=== PATIENT | female | born 1950 | race Caucasian/White ===

== ENCOUNTER 2016-06-20 11:17 | Emergency (ER) | payer MEDICARE, MEDICAID ==
--- NOTE | 2016-06-20 12:05 | C.PDOC ---
History Of Present Illness 66 year old female, with a Hx of diabetes, was brought in via BLS and reports left sided back and arm pain from a mechanical fall that occurred yesterday. Patient notes she hit her abdomen on the corner of the table and fell on her buttocks and on her left back and arm. Patient denies changes in sensation or weakness of left arm and back, LOC, AMS, or head trauma, fever, chills, urinary or bowel incontinence, abdominal pain, or any other complaints. (-) N/v. Patient notes having full dialysis today. - HPI Time Seen by Provider: 06/20/16 11:22 Chief Complaint (Nursing): Trauma History Per: Patient History/Exam Limitations: language barrier Onset/Duration Of Symptoms: Days Location Of Injury: Left: Arm, Back, Anterior: Abdomen Severity: Mild Recent travel outside of the [place]: No Past Medical History Reviewed: Historical Data, Nursing Documentation, Vital Signs Vital Signs: Last Vital Signs Temp 97.5 F L 06/20/16 16:25 Pulse 66 06/20/16 16:25 Resp 18 06/20/16 16:25 BP 130/66 06/20/16 16:25 Pulse Ox 96 06/20/16 16:25 - Medical History PMH: Anxiety, Arthritis, Asthma, COPD, Diabetes, HTN, Hypercholesterolemia, End Stage Renal Disease (MWF dilaysis, R arm shunt), Chronic Kidney Disease Family History: States: Unknown Family Hx - Social History Hx Tobacco Use: No Hx Alcohol Use: No Hx Substance Use: No - Immunization History Hx Tetanus Toxoid Vaccination: Yes Hx Influenza Vaccination: Yes Hx Pneumococcal Vaccination: Yes Review Of Systems Except As Marked, All Systems Reviewed And Found Negative. Constitutional: Negative for: Fever, Chills Gastrointestinal: Negative for: Nausea, Vomiting Genitourinary: Negative for: Dysuria, Incontinence (Urinary and bowel) Neurological: Negative for: Weakness (or change in sensation), Altered Mental Status, Other (LOC, Head trauma) Physical Exam - Physical Exam Appears: Non-toxic, No Acute Distress Skin: Warm, Dry, Ecchymosis (5 cm diameter area below belly button) Head: Atraumatic, Normacephalic Eye(s): bilateral: Normal Inspection, PERRL, EOMI Nose: Normal Oral Mucosa: Moist Chest: Symmetrical Cardiovascular: Rhythm Regular Respiratory: Normal Breath Sounds, No Accessory Muscle Use Gastrointestinal/Abdominal: Bowel Sounds, Soft, No Tenderness, No Distention Back: No CVA Tenderness, No Vertebral Tenderness, Paraspinal Tenderness (Left sided lower lumbar and buttocks tenderness) Extremity: Normal ROM (diffuse tenderness to the left shoulder and elbow, illicited with ROM), Tenderness, No Swelling Neurological/Psych: Oriented x3, Normal Speech, Normal Cognition ED Course And Treatment - Laboratory Results Result Diagrams: 06/20/16 12:26 06/20/16 12:26 O2 Sat by Pulse Oximetry: 98 (Room air) Pulse Ox Interpretation: Normal Progress Note: Plans: CT Abd/Pel, PTT, Tylenol, IV fluids, reassess and disposition. On reassessment, patient is resting comfortably, with improvement of left back and arm pain, no fever, no numbness, no weakness, or abdominal pain. PT ate in ED, is comfortable going home. Patient is ambulatory in the emergency department with no signs of discomfort. Patient was advised to follow up with their PMD in 1-2 days. Disposition - Disposition Referrals: Clover Rodriguez MD [Medical Doctor] - Disposition: HOME/ ROUTINE Disposition Time: 15:54 Condition: STABLE Additional Instructions: Vaya a smith mdico o la clnica en 1-3 snyder sin falta, para mas evaluacin. [place] los medicamentos pam indicado. Volver a la valdemar de emergencia en cualquier momento si los sntomas persisten o empeoran. Prescriptions: Acetaminophen [Tylenol 325mg tab] 650 mg PO Q4 PRN #20 tab PRN Reason: Pain, Mild (1-3) Instructions: Back Pain (ED) Print Language: ARABIC - Clinical Impression Clinical Impression: Superficial bruising of abdominal wall, Back strain - Scribe Statement The provider has reviewed the documentation as recorded by the Scribe Jelena san All medical record entries made by the Scribe were at my direction and personally dictated by me. I have reviewed the chart and agree that the record accurately reflects my personal performance of the history, physical exam, medical decision making, and the department course for this patient. I have also personally directed, reviewed, and agree with the discharge instructions and disposition.
[2016-06-20 12:33] LABS: BASO # 0.1 K/uL (0.0-0.2); BASO % 0.9 % (0.0-2.0); EOS # 0.1 K/uL (0.0-0.7); EOS % 2.3 % (0.0-4.0); HEMATOCRIT 38.4 % (34.0-47.0); LYMPH # 2.3 K/uL (1.0-4.3); LYMPH % 37.1 % (20.0-40.0); MEAN CELL VOLUME 101.2 fL (81.0-99.0); MEAN CORPUSCULAR HGB CONC 32.6 g/dL (33.0-37.0); MEAN PLATELET VOLUME 8.1 fL (7.2-11.7); MONO # 0.6 K/uL (0.0-0.8); MONO % 9.8 % (0.0-10.0); NRBC % 0.2 % (0.0-2.0); RED CELL DISTRIBUTION WIDTH 16.1 % (11.5-14.5); WHITE BLOOD COUNT 6.3 K/uL (4.8-10.8)
[2016-06-20 12:40] LABS: POTASSIUM 4.2 mmol/L (3.6-5.2)
[2016-06-20 12:42] LABS: ALB/GLOB RATIO 1.3 (1.0-2.1); BILIRUBIN,TOTAL 0.8 mg/dL (0.2-1.3); TOTAL PROTEIN 7.4 g/dL (6.3-8.3)
[2016-06-20 12:43] LABS: CALCIUM 8.6 mg/dl (8.6-10.4)
--- NOTE | 2016-06-20 12:58 | RAD ---
PROCEDURE: Radiographs of the left elbow. HISTORY: trauma COMPARISON: No prior. FINDINGS: BONES: No definite fracture. JOINTS: Minimal degenerative changes. SOFT TISSUES: Normal. JOINT EFFUSION: No significant joint. OTHER FINDINGS: Posterior other enthesophyte IMPRESSION: Mild degenerative changes. No definite fracture.
--- NOTE | 2016-06-20 13:01 | RAD ---
PROCEDURE: Radiographs of the Left Shoulder HISTORY: trauma COMPARISON: 01/03/2013. FINDINGS: BONES: No fracture or dislocation. JOINTS: Mild degenerative changes of the glenohumeral acromioclavicular joints SOFT TISSUES: Normal. OTHER FINDINGS: None. IMPRESSION: Mild degenerative changes of the glenohumeral and acromioclavicular joints. No fracture or dislocation
[2016-06-20 13:50] LABS: INR 0.9
--- NOTE | 2016-06-20 15:50 | CT ---
PROCEDURE: CT Abdomen and Pelvis without contrast. HISTORY: pain COMPARISON: None. TECHNIQUE: Contiguous axial images of the abdomen and pelvis. No oral or IV contrast given. Coronal and Sagittal reformats generated. Please note that due to lack of intravenous and oral contrast, evaluation of soft tissue structures and bowel is limited. Radiation dose: Total exam DLP = 1160 mGy-cm. This CT exam was performed using one or more of the following dose reduction techniques: Automated exposure control, adjustment of the mA and/or kV according to patient size, and/or use of iterative reconstruction technique. FINDINGS: LOWER THORAX: Mild bibasilar atelectatic changes noted. The heart is mildly enlarged. Coronary arterial and valvular calcifications noted. LIVER: Sub centimeter hypodensity in the left hepatic lobe too small to characterize accurately however likely represents the small cyst versus hemangioma. GALLBLADDER AND BILE DUCTS: Gallbladder not seen. Surgical clips seen in the gallbladder fossa. No intra or extrahepatic biliary ductal dilatation. PANCREAS: Unremarkable. No mass. No ductal dilatation. SPLEEN: Rounded calcification near the splenic hilum/inferior pole likely from old injury/infection. ADRENALS: Unremarkable. KIDNEYS AND URETERS: Atrophic kidneys. No hydronephrosis. Possible cysts in calcifications in both kidneys. BLADDER: Minimally distended limiting evaluation. REPRODUCTIVE: Please note that evaluation of gynecologic organs is not optimal on CT imaging. No gross suspicious adnexal lesions. APPENDIX: Unremarkable. BOWEL: No bowel obstruction. Diverticulosis without evidence of diverticulitis. PERITONEUM: Unremarkable. No fluid collection. No free air. LYMPH NODES: Mild left axillary lymphadenopathy. Mildly prominent lymphadenopathy in the left and right inguinal regions. VASCULATURE: Tortuous descending aorta. Mild ectasia of the proximal descending aorta measuring up to 3.2 centimeters. Scattered calcific plaque throughout the abdominal aorta and its main branches. Venous collaterals in the soft tissues on the lower abdomen and upper thigh, particularly on the left. BONES: Degenerative changes of the lower lumbar spine. OTHER FINDINGS: None. IMPRESSION: No acute bowel pathology. Normal appendix. Soft tissue structures are suboptimally evaluated due to lack of intravenous contrast. Other findings as above.
[2016-06-20 16:27] VITALS: BP 130/66; PULSE 66; RESP 18; TEMP 97.5
[2016-06-20 19:07] VITALS: O2SAT 98
== END 2016-06-20 16:27 | disposition home or self-care (01) ==
LOC: C.ER 11:17
DX: S30.1XXA Contusion of abdominal wall, initial encounter (principal); S39.012A Strain of muscle, fascia and tendon of lower back, initial encounter; W19.XXXA Unspecified fall, initial encounter; E11.9 Type 2 diabetes mellitus without complications; E78.00 Pure hypercholesterolemia, unspecified; I12.0 Hypertensive chronic kidney disease with stage 5 chronic kidney disease or end stage renal disease; N18.6 End stage renal disease; Z99.2 Dependence on renal dialysis

== ENCOUNTER 2016-08-22 11:28 | Emergency (ER) | payer MEDICARE, MEDICAID ==
[2016-08-22 11:40] VITALS: TEMP 97.7; O2SAT 99
--- NOTE | 2016-08-22 13:14 | C.PDOC ---
History Of Present Illness 66-year-old female, PMHx includes ESRD MWF, presents to the emergency department stating she could not go to dialysis today due to lack of transport. Denies nausea/vomiting, leg swelling, shortness of breath, chest pain, cough, abdominal pain/distention, sputum, or any other associated symptoms. No other complaints at this time. Time Seen by Provider: 08/22/16 12:55 Chief Complaint (Nursing): Chest Pain History Per: Patient History/Exam Limitations: no limitations Past Medical History Reviewed: Historical Data, Nursing Documentation, Vital Signs Vital Signs: Last Vital Signs Temp 97.7 F 08/22/16 11:40 Pulse 7 L 08/22/16 14:26 Resp 19 08/22/16 14:26 BP 139/82 08/22/16 14:26 Pulse Ox 99 08/22/16 14:26 - Medical History PMH: Anxiety, Arthritis, Asthma, COPD, Diabetes, HTN, Hypercholesterolemia, End Stage Renal Disease (MWF dilaysis, R arm shunt), Chronic Kidney Disease Family History: States: No Known Family Hx - Social History Hx Tobacco Use: No Hx Alcohol Use: No Hx Substance Use: No - Immunization History Hx Tetanus Toxoid Vaccination: Yes Hx Influenza Vaccination: Yes Hx Pneumococcal Vaccination: Yes Review Of Systems Except As Marked, All Systems Reviewed And Found Negative. Constitutional: Negative for: Fever, Chills Cardiovascular: Negative for: Chest Pain Respiratory: Negative for: Cough, Shortness of Breath Gastrointestinal: Negative for: Nausea, Vomiting Musculoskeletal: Negative for: Back Pain Neurological: Negative for: Weakness, Numbness, Headache, Dizziness Physical Exam - Physical Exam Appears: Non-toxic, No Acute Distress Skin: Warm, Dry, No Rash Head: Atraumatic, Normacephalic Eye(s): bilateral: Normal Inspection, PERRL, EOMI Nose: Normal Oral Mucosa: Moist Lips: Normal Appearing Neck: Normal ROM Chest: Symmetrical, No Tenderness Cardiovascular: Rhythm Regular, No Murmur Respiratory: Normal Breath Sounds, No Accessory Muscle Use, No Rales, No Rhonchi , No Wheezing Gastrointestinal/Abdominal: Soft, No Tenderness Back: Normal Inspection Extremity: Normal ROM, No Tenderness, No Swelling Pulses: Left Dorsalis Pedis: Normal, Right Dorsalis Pedis: Normal Neurological/Psych: Oriented x3, Normal Speech, Normal Motor Gait: Steady ED Course And Treatment O2 Sat by Pulse Oximetry: 99 (on RA) Pulse Ox Interpretation: Normal Medical Decision Making Medical Decision Making: Patient evaluated by Dr Light at bedside, and agrees that the patient is not fluid overloaded, and states to discharge patient for dialysis today. Dr. Light spoke the dialysis center and has made an appointment for the patient. Disposition - Disposition Referrals: Nimesh Light MD [Staff Provider] - Disposition: HOME/ ROUTINE Disposition Time: 13:34 Condition: GOOD Additional Instructions: Go to dialysis today. Follow up with the medical doctor within 1-2 days. Return if worsened. Instructions: Hemodialysis (ED), Dialysis Diet (DC) - Clinical Impression Clinical Impression: ESRD (end stage renal disease) - PA / JUNIOR ASSISTANT MANAGER / Resident Statement MD/DO has reviewed & agrees with the documentation as recorded. - Scribe Statement The provider has reviewed the documentation as recorded by the Scribe (Marylu Yip) All medical record entries made by the Scribe were at my direction and personally dictated by me. I have reviewed the chart and agree that the record accurately reflects my personal performance of the history, physical exam, medical decision making, and the department course for this patient. I have also personally directed, reviewed, and agree with the discharge instructions and disposition.
[2016-08-22 14:27] VITALS: BP 139/82; PULSE 7; RESP 19
--- NOTE | 2016-08-22 14:28 | RAD ---
PROCEDURE: CHEST RADIOGRAPH, 1 VIEW HISTORY: chest pain COMPARISON: 08/25/2015. FINDINGS: LUNGS: There is prominent central vasculature and mild pulmonary venous congestion. There is no focal consolidation. PLEURA: No pneumothorax or pleural fluid seen. CARDIOVASCULAR: There is persistent moderate cardiomegaly. OSSEOUS STRUCTURES: No significant abnormalities. VISUALIZED UPPER ABDOMEN: Normal. OTHER FINDINGS: None. IMPRESSION: Persistent moderate cardiomegaly and mild pulmonary venous congestion. No focal consolidation.
--- NOTE | 2016-08-23 12:38 | CARD ---
APPROVED REPORT EKG Measurement Heart [id number] <Conclusion> Normal sinus rhythm Normal ECG
--- NOTE | 2016-08-23 12:38 | CARD ---
APPROVED REPORT EKG Measurement Heart [id number] <Conclusion> Normal sinus rhythm Normal ECG
== END 2016-08-22 14:34 | disposition home or self-care (01) ==
LOC: C.ER 11:28
DX: I12.0 Hypertensive chronic kidney disease with stage 5 chronic kidney disease or end stage renal disease (principal); N18.6 End stage renal disease; Z99.2 Dependence on renal dialysis

== ENCOUNTER 2017-06-09 05:46 | Emergency (ER) | payer MEDICARE, MEDICAID ==
[2017-06-09] MEDS ORDERED: Lidocaine 1% Inj (20ml) INFIL STA (06:05)
[2017-06-09 06:14] VITALS: BP 132/79; PULSE 89; RESP 20; TEMP 97.2; O2SAT 96
--- NOTE | 2017-06-09 06:43 | C.PDOC ---
History Of Present Illness Patient presents to ED c/o left hand/arm pain after slip and fall on while getting ready to go to dialysis. She denies head injury or LOC, dizziness, chest pain, palpitations. 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 Are (Timing): Still Present Severity: Moderate Past Medical History Reviewed: Historical Data, Nursing Documentation, Vital Signs Vital Signs: Last Vital Signs Temp 97.2 F L 06/09/17 05:53 Pulse 89 06/09/17 05:53 Resp 20 06/09/17 05:53 BP 132/79 06/09/17 05:53 Pulse Ox 96 06/09/17 07:04 - Medical History PMH: Anxiety, Arthritis, Asthma, COPD, Diabetes, HTN, Hypercholesterolemia, End Stage Renal Disease (MWF dilaysis, R arm shunt), Chronic Kidney Disease Family History: States: No Known Family Hx - Social History Hx Tobacco Use: No Hx Alcohol Use: No Hx Substance Use: No - Immunization History Hx Tetanus Toxoid Vaccination: Yes Hx Influenza Vaccination: Yes Hx Pneumococcal Vaccination: Yes Review Of Systems Except As Marked, All Systems Reviewed And Found Negative. Constitutional: Negative for: Fever, Chills Cardiovascular: Negative for: Chest Pain, Palpitations Respiratory: Negative for: Shortness of Breath Neurological: Positive for: Other (left pinky, left elbow and left shoulder pain ). Negative for: Headache, Dizziness Physical Exam - Physical Exam Appears: Well, Non-toxic, In Acute Distress (in mild pain ) Head: Atraumatic, Normacephalic Eye(s): bilateral: Normal Inspection Oral Mucosa: Moist Cardiovascular: Rhythm Regular Respiratory: Normal Breath Sounds, No Rales, No Rhonchi, No Wheezing Extremity: Capillary Refill (< 2 sec all digits ), Other (left 5th digit with dislocated distal phalanx, (+) TTP, (+) elbow TTP without swelling, (+) mild anterior shoulder TTP) Pulses: Left Radial: Normal, Right Radial: Normal Neurological/Psych: Oriented x3, Normal Sensation ED Course And Treatment O2 Sat by Pulse Oximetry: 96 (ra) Pulse Ox Interpretation: Normal - Other Rad left shoulder Xray X-Ray: Interpreted by Me, Viewed By Me (no fracture/dislocation) left hand Xray X-Ray: Interpreted by Me, Viewed By Me (dislocation left 5h digit distal phalanx , no fx) left elbow Xray X-Ray: Interpreted by Me, Viewed By Me (proximal ulna/radius nondisplaced fxs) Progress Note: Xrays of left hand, elbow and shoulder ordered and reviewed. (+ ) dislocation of left 5th digit distal phalanx and (+) nondisplaced elbow fx. Left 5th digit reduction done by me, patient tolerated well. Finger splint placed on 5th digit by me. Left posterior long arm splint and shoulder sling placed by test tech. Reevaluation Time: 07:00 Reassessment Condition: Improved (On reassessment, patient is resting comfortably and pain has imprroved. Left 5th digit and elbow/arm have been immobilized. Patient given Rx for pain medication and instrcucted to follow up with orthopedics within 1 week. She understands she should return to ED if symptoms worsen.) Disposition Counseled Patient/Family Regarding: Studies Performed, Diagnosis, Need For Followup, Rx Given - Disposition Referrals: Becky Campa MD [Staff Provider] - [facility] [place] [Outside] [facility] [Outside] Disposition: HOME/ ROUTINE Disposition Time: 07:00 Condition: STABLE Prescriptions: Acetaminophen with Codeine [Tylenol with Codeine #3 Tablet] 1 each PO Q6 PRN # 15 tablet PRN Reason: pain Instructions: Elbow Fracture (DC), Finger Dislocation Forms: [facility] (Spanish) Print Language: LITHUANIAN - POA Present On Arrival: Falls Or Trauma - Clinical Impression Clinical Impression: Dislocation of left little finger, Elbow fracture, left
--- NOTE | 2017-06-09 08:25 | RAD ---
PROCEDURE: Radiographs of the Left Shoulder HISTORY: left shoulder pain after fall COMPARISON: No prior. FINDINGS: BONES: There is diffuse bone demineralization. There is no acute fracture or bone destruction. JOINTS: There is severe degenerative osteoarthrosis in the acromioclavicular joint. The glenohumeral joint is normal. SOFT TISSUES: Normal. OTHER FINDINGS: None. IMPRESSION: No acute fracture or dislocation.
--- NOTE | 2017-06-09 08:30 | RAD ---
PROCEDURE: Radiographs of the left elbow. HISTORY: left elbow pain after fall COMPARISON: No prior. FINDINGS: BONES: There is an acute nondisplaced fracture in the neck of the radius and acute nondisplaced fracture in the coronoid process of ulna. There are or ossific densities superior to the olecranon process which may represent displaced fracture fragments from avulsion fracture of the olecranon process. JOINTS: Normal. No osteoarthritis. SOFT TISSUES: Normal. JOINT EFFUSION: There is a small joint effusion. OTHER FINDINGS: None IMPRESSION: Acute nondisplaced fractures in the neck of the radius and coronoid process of ulna. Suspect comminuted avulsion fracture in the olecranon process.
--- NOTE | 2017-06-09 08:34 | RAD ---
PROCEDURE: Left Hand Radiographs. HISTORY: left hand pain after fall COMPARISON: None. FINDINGS: BONES: There is no acute displaced fracture. Bone alignment and mineralization are normal. JOINTS: There is dorsal dislocation of the distal interphalangeal joint of the 5th finger. SOFT TISSUES: Normal. OTHER FINDINGS: None. IMPRESSION: Dorsal dislocation of the distal interphalangeal joint of the 5th finger. No acute fracture.
== END 2017-06-09 07:31 | disposition home or self-care (01) ==
LOC: C.ER 05:46
DX: S63.297A Dislocation of distal interphalangeal joint of left little finger, initial encounter (principal); S52.135A Nondisplaced fracture of neck of left radius, initial encounter for closed fracture; S52.045A Nondisplaced fracture of coronoid process of left ulna, initial encounter for closed fracture; W01.0XXA Fall on same level from slipping, tripping and stumbling without subsequent striking against object, initial encounter

== ENCOUNTER 2017-06-19 08:44 | Emergency (ER) | payer MEDICARE, MEDICAID ==
[2017-06-19] MEDS ORDERED: Albuterol-Ipratrop 3 mg / 0.5 (3 ml) UD INH STA ×3 (09:46→11:53)
[2017-06-19] MEDS ORDERED: Albuterol-Ipratrop 3 mg / 0.5 (3 ml) UD ONE ×2 (09:55→11:39)
[2017-06-19 10:55] LABS: BASO % 0.4 % (0.0-2.0); EOS # 0.1 K/uL (0.0-0.7); EOS % 1.4 % (0.0-4.0); HEMOGLOBIN 11.5 g/dL (11.0-16.0); LYMPH # 2.2 K/uL (1.0-4.3); LYMPH % 33.6 % (20.0-40.0); MEAN CORPUSCULAR HEMOGLOBIN 33.8 pg (27.0-31.0); MEAN PLATELET VOLUME 8.3 fL (7.2-11.7); MONO # 0.4 K/uL (0.0-0.8); MONO % 6.1 % (0.0-10.0); NEUT # 3.8 K/uL (1.8-7.0); NEUT % 58.5 % (50.0-75.0); RBC 3.41 Mil/uL (3.80-5.20); RED CELL DISTRIBUTION WIDTH 15.2 % (11.5-14.5); WHITE BLOOD COUNT 6.4 K/uL (4.8-10.8)
[2017-06-19 10:57] LABS: MEAN CELL VOLUME 99.2 fL (81.0-99.0)
[2017-06-19 11:14] LABS: ALB/GLOB RATIO 1.1 (1.0-2.1); ALBUMIN 4.4 g/dL (3.5-5.0); CALCIUM 9.1 mg/dl (8.6-10.4)
[2017-06-19 11:20] LABS: TROPONIN I 0.029 ng/mL (0.00-0.120)
--- NOTE | 2017-06-19 11:28 | RAD ---
PROCEDURE: CHEST RADIOGRAPH, 1 VIEW HISTORY: Shortness of breath COMPARISON: 08/22/2016. FINDINGS: LUNGS: The lungs are well inflated. There is moderate pulmonary venous congestion. PLEURA: No pneumothorax or pleural fluid seen. CARDIOVASCULAR: There is persistent mild cardiomegaly. OSSEOUS STRUCTURES: No significant abnormalities. VISUALIZED UPPER ABDOMEN: Normal. OTHER FINDINGS: None. IMPRESSION: Persistent cardiomegaly and moderate pulmonary venous congestion. No active pulmonary disease.
[2017-06-19 11:39] VITALS: RESP 18
--- NOTE | 2017-06-19 12:34 | C.PDOC ---
History Of Present Illness 67-year-old female, dialysis (MWF) presents to the emergency department with complaints of shortness of breath that started after completing dialysis this morning. Patient has a Hx of asthma and states this feels similar to her prior exacerbation. She denies nausea/vomiting, chest pain or cough. Patient has not had any prior intubations. Of note, patient states she fractured her left arm one week ago, and it is placed in cast. Time Seen by Provider: 06/19/17 09:25 Chief Complaint (Nursing): Respiratory Distress History Per: Patient History/Exam Limitations: no limitations Onset/Duration Of Symptoms: Days Current Symptoms Are (Timing): Still Present Severity: Moderate Past Medical History Reviewed: Historical Data, Nursing Documentation, Vital Signs Vital Signs: Last Vital Signs Temp 98.1 F 06/19/17 13:04 Pulse 80 06/19/17 13:04 Resp 18 06/19/17 13:04 BP 154/90 H 06/19/17 13:04 Pulse Ox 96 06/19/17 13:04 - Medical History PMH: Anxiety, Arthritis, Asthma, COPD, Diabetes, HTN, Hypercholesterolemia, End Stage Renal Disease (MWF dilaysis, R arm shunt), Chronic Kidney Disease Family History: States: No Known Family Hx - Social History Hx Tobacco Use: No Hx Alcohol Use: No Hx Substance Use: No - Immunization History Hx Tetanus Toxoid Vaccination: Yes Hx Influenza Vaccination: Yes Hx Pneumococcal Vaccination: Yes Review Of Systems Constitutional: Negative for: Fever, Chills Cardiovascular: Negative for: Chest Pain Respiratory: Positive for: Shortness of Breath, Wheezing. Negative for: Cough Gastrointestinal: Negative for: Vomiting Musculoskeletal: Negative for: Back Pain Physical Exam - Physical Exam Appears: Non-toxic, No Acute Distress Skin: Normal Color, Warm, Dry, No Rash Head: Normacephalic Eye(s): bilateral: PERRL Nose: Normal Oral Mucosa: Moist Lips: Normal Appearing Neck: Normal ROM Chest: Symmetrical Cardiovascular: Rhythm Regular, No Murmur Respiratory: No Decreased Breath Sounds, No Accessory Muscle Use, Wheezing Gastrointestinal/Abdominal: Normal Exam, Bowel Sounds Extremity: Normal ROM, Other ((+)thrill in right upper extremity. Left arm in cast.) ED Course And Treatment - Laboratory Results Result Diagrams: 06/19/17 10:51 06/19/17 10:51 ECG: Interpreted By Me, Viewed By Me ECG Rhythm: Sinus Rhythm ECG Interpretation: No Acute Changes Interpretation Of ECG: Normal intervals, normal axis. Non specific ST/T wave changes Rate From EC O2 Sat by Pulse Oximetry: 99 (RA) Pulse Ox Interpretation: Normal Medical Decision Making Medical Decision Makin - patient states improvement and feels completely better. Patient ambulated in ER without limitations. d-dimer noted to be elevated, doubt dvt/pe, no history, saturations are normal, wheezing on exam and improved, cxr with chronic changes, patient do not want further workup. Will discharge and advise follow up with pmd in 2 days. Disposition Counseled Patient/Family Regarding: Studies Performed, Diagnosis, Need For Followup, Rx Given - Disposition Referrals: Clover Rodriguez MD [Medical Doctor] - Disposition: HOME/ ROUTINE Disposition Time: 12:43 Condition: STABLE Additional Instructions: follow up with your doctor in 2 days call to make an appointment take medications as needed for pain return to ER if symptoms worsens or progress Prescriptions: Albuterol HFA [Ventolin HFA 90 mcg/actuation (8 g)] 2 puff IH [id number] #1 puff predniSONE [predniSONE Tab] 50 mg PO DAILY #4 tab Instructions: Asthma in Adults Forms: Gen Discharge Inst Serbian, [employer] (Serbian) - Clinical Impression Clinical Impression: Exacerbation of asthma - Scribe Statement The provider has reviewed the documentation as recorded by the Scribe (Marylu Yip) All medical record entries made by the Scribe were at my direction and personally dictated by me. I have reviewed the chart and agree that the record accurately reflects my personal performance of the history, physical exam, medical decision making, and the department course for this patient. I have also personally directed, reviewed, and agree with the discharge instructions and disposition.
[2017-06-19 13:05] VITALS: BP 154/90; PULSE 80; TEMP 98.1
[2017-06-19 18:34] VITALS: O2SAT 99
--- NOTE | 2017-06-20 21:56 | CARD ---
APPROVED REPORT EKG Measurement Heart [id number] 140P-2 [id number] <Conclusion> Normal sinus rhythm Normal ECG
== END 2017-06-19 13:05 | disposition home or self-care (01) ==
LOC: C.ER 08:44
DX: J45.901 Unspecified asthma with (acute) exacerbation (principal); I12.0 Hypertensive chronic kidney disease with stage 5 chronic kidney disease or end stage renal disease; N18.6 End stage renal disease; Z99.2 Dependence on renal dialysis; E78.00 Pure hypercholesterolemia, unspecified
CPT/HCPCS: 71045; 80053; 83880; 84484; 85025; 85378; 93005; 94150; 94640; 96360; 99283; J2930

== ENCOUNTER 2017-09-10 16:27 | Emergency (ER) | payer MEDICARE, MEDICAID ==
[2017-09-10 16:39] VITALS: BP 121/77; PULSE 72; RESP 16; TEMP 97.9; O2SAT 98
--- NOTE | 2017-09-10 17:35 | C.PDOC ---
History Of Present Illness 67 year old female presents to the ED complaining of right lower back pain radiating down to her right buttock/thigh for seven months but worse for the past seven days. She denies any trauma/injuries, weakness, or numbness. She states pain is worse with getting up from sitting down. She uses cane now due to back pain. Patient has a history of End Stage Renal Disease and was afraid to take medications because she is on haemodialysis. She has not been to PMD for evaluation of symptoms. R LOWER BACK PAIN X SEV MONTHS, WORSE X SEV DAYS. NO TRAUMA. R LOWER BACK RADIATION R BUTTOCK/THIGH. WORSE W GETTING UP FROM STANDING. USING CANE NOW DUE TO BACK PAIN. NO WEAK/NUMB. HO ESRD, PS AFRAID TO TAKE MEDS BC IS ON HD. NO PRIOR PMD EVAL FOR SAME. EXAM MILD DIST NONTOXIC BACK NONTEND; +REPRODUC PAIN W ROM NEURO NO FOCAL DEF REMIANDER NEG Time Seen by Provider: 09/10/17 17:28 Chief Complaint (Nursing): Back Pain History Per: Patient History/Exam Limitations: no limitations Onset/Duration Of Symptoms: Worse Since (7 days ago ) Current Symptoms Are (Timing): Still Present Quality Of Discomfort: "Pain" Exacerbating Factor(s): Other (Getting up from sitting down ) Past Medical History Reviewed: Historical Data, Nursing Documentation, Vital Signs Vital Signs: Last Vital Signs Temp 97.9 F 09/10/17 16:35 Pulse 72 09/10/17 16:35 Resp 16 09/10/17 16:35 BP 121/77 09/10/17 16:35 Pulse Ox 98 09/10/17 17:52 - Medical History PMH: Anxiety, Arthritis, Asthma, COPD, Diabetes, HTN, Hypercholesterolemia, End Stage Renal Disease (MWF dilaysis, R arm shunt), Chronic Kidney Disease Surgical History: No Surg Hx Family History: States: No Known Family Hx - Social History Hx Tobacco Use: No Hx Alcohol Use: No Hx Substance Use: No - Immunization History Hx Tetanus Toxoid Vaccination: Yes Hx Influenza Vaccination: Yes Hx Pneumococcal Vaccination: Yes Review Of Systems Except As Marked, All Systems Reviewed And Found Negative. Musculoskeletal: Positive for: Back Pain (Right lower back pain radiating down right buttock/thigh ) Neurological: Negative for: Weakness, Numbness Physical Exam - Physical Exam Appears: Non-toxic, Other (Mild distress) Skin: Normal Color, Warm, Dry Head: Atraumatic, Normacephalic Eye(s): bilateral: Normal Inspection Nose: Normal Oral Mucosa: Moist Neck: Supple Chest: Symmetrical Cardiovascular: Rhythm Regular Respiratory: Other (NARD) Back: No CVA Tenderness, No Vertebral Tenderness, Decreased ROM (+REPRODUC PAIN W ROM), No Paraspinal Tenderness Neurological/Psych: Oriented x3, Normal Speech, No Other (Focal deficits) Gait: Other (Uses cane) ED Course And Treatment O2 Sat by Pulse Oximetry: 98 (RA) Pulse Ox Interpretation: Normal Progress Note: Patient assessed and examined. Patient given Tylenol, Flexeril, Neurotin, Toradol, and Decadron. On reassessment, patient is resting comfortably, is no longer having back pain, no fever, no bony tenderness, no numbness, no weakness, or abdominal pain. Patient is ambulatory in the emergency department with no signs of discomfort. Patient given Rx for Flexeril , Neurontin, and Motrin. Patient adivsed to follow up with PMD in 1-2 days. Disposition Counseled Patient/Family Regarding: Diagnosis, Need For Followup, Rx Given - Disposition Referrals: YOUR,PMD [Other] Disposition: HOME/ ROUTINE Disposition Time: 17:52 Condition: IMPROVED Prescriptions: Cyclobenzaprine [Flexeril] 5 mg PO TID #12 tab Gabapentin [Neurontin] 300 mg PO TID #30 cap Ibuprofen [Motrin] 600 mg PO Q6 #30 tab Instructions: Radiculopathy (DC) Forms: [email or web address] (Persian) Print Language: UZBEK - Clinical Impression Clinical Impression: Sciatica - Scribe Statement The provider has reviewed the documentation as recorded by the Moises Garduno All medical record entries made by the Marinaibchon were at my direction and personally dictated by me. I have reviewed the chart and agree that the record accurately reflects my personal performance of the history, physical exam, medical decision making, and the department course for this patient. I have also personally directed, reviewed, and agree with the discharge instructions and disposition.
[2017-09-10] MEDS ORDERED: Acetaminophen-Codeine 300/30 mg Tab PO STA (17:37)
[2017-09-10] MEDS ORDERED: Acetaminophen-Codeine 300/30 mg Tab PO ONE (17:44)
== END 2017-09-10 17:57 | disposition home or self-care (01) ==
LOC: C.ER 16:27
DX: M54.30 Sciatica, unspecified side (principal)
CPT/HCPCS: 96372; 99283; J1885; J8540

== ENCOUNTER 2018-05-03 06:07 | Emergency (ER) | payer MEDICARE, MEDICAID | END 2018-05-03 10:33 | disposition home or self-care (01) | LOC: C.ER 06:07 ==

== ENCOUNTER 2018-05-14 09:49 | Inpatient (IN) | payer MEDICARE, MEDICAID ==
[2018-05-14 11:32] LABS: VENOUS BLOOD GAS BASE EXCESS 7.3 mmol/L (0.0-2.0); VENOUS BLOOD GAS PCO2 53 mmHg (40-60); VENOUS BLOOD GAS PO2 22 mm/Hg (30-55); VENOUS BLOOD PH 7.41 (7.32-7.43)
[2018-05-14 11:44] LABS: BASO # 0.1 K/uL (0.0-0.2); BASO % 0.7 % (0.0-2.0); EOS # 0.2 K/uL (0.0-0.7); EOS % 2.2 % (0.0-4.0); HEMOGLOBIN 9.5 g/dL (11.0-16.0); LYMPH # 1.7 K/uL (1.0-4.3); LYMPH % 17.6 % (20.0-40.0); MEAN CELL VOLUME 99.3 fL (81.0-99.0); MEAN CORPUSCULAR HEMOGLOBIN 32.3 pg (27.0-31.0); MEAN CORPUSCULAR HGB CONC 32.5 g/dL (33.0-37.0); MEAN PLATELET VOLUME 8.9 fL (7.2-11.7); MONO # 0.8 K/uL (0.0-0.8); MONO % 7.9 % (0.0-10.0); NEUT # 6.9 K/uL (1.8-7.0); NEUT % 71.6 % (50.0-75.0); RBC 2.95 Mil/uL (3.80-5.20); RED CELL DISTRIBUTION WIDTH 17.2 % (11.5-14.5); WHITE BLOOD COUNT 9.7 K/uL (4.8-10.8)
[2018-05-14 11:45] LABS: INR 1.1; PROTHROMBIN TIME 11.5 SECONDS (9.7-12.2)
--- NOTE | 2018-05-14 11:47 | C.PDOC ---
History Of Present Illness 68 y/o female, w/PMhx of ESRD, brought to ER by BLS for infected AV Shunt. Patient states that she is currently undergoing hemodialysis and she was scheduled for dialysis today. Patient reports that she the dialysis center noticed that she has an infected AV shunt so they referred her to the ER. She notes that she has some pain with swelling and redness in the area around the shunt in the right upper arm. She states that she has some chills. Denies having fever. Time Seen by Provider: 05/14/18 10:19 Chief Complaint (Nursing): Vascular Access Device Problem History Per: Patient History/Exam Limitations: no limitations Onset/Duration Of Symptoms: Days Current Symptoms Are (Timing): Still Present Severity: Moderate Past Medical History Reviewed: Historical Data, Nursing Documentation, Vital Signs Vital Signs: Last Vital Signs Temp 99.0 F 05/14/18 11:32 Pulse 84 05/14/18 11:01 Resp 20 05/14/18 11:01 BP 131/64 05/14/18 11:01 Pulse Ox 95 05/14/18 11:01 - Medical History PMH: Anxiety, Arthritis, Asthma, COPD, Diabetes, HTN, Hypercholesterolemia, End Stage Renal Disease, Chronic Kidney Disease Other Surgeries: hx of surgeries Family History: States: No Known Family Hx - Social History Hx Tobacco Use: No Hx Alcohol Use: No Hx Substance Use: No - Immunization History Hx Tetanus Toxoid Vaccination: Yes Hx Influenza Vaccination: Yes Hx Pneumococcal Vaccination: Yes Review Of Systems Except As Marked, All Systems Reviewed And Found Negative. Constitutional: Positive for: Chills. Negative for: Fever Gastrointestinal: Negative for: Nausea, Vomiting Musculoskeletal: Positive for: Other (right upper arm pain and swelling) Physical Exam - Physical Exam Appears: Non-toxic, No Acute Distress, Other (obese) Skin: Normal Color, Warm, Dry, Other (induration and erythema over AV shunt in right upper arm ) Head: Atraumatic, Normacephalic Eye(s): bilateral: Normal Inspection Nose: Normal Oral Mucosa: Moist Neck: Supple Chest: Symmetrical Cardiovascular: Rhythm Regular Respiratory: Normal Breath Sounds, No Rales, No Rhonchi, No Wheezing Gastrointestinal/Abdominal: Normal Exam, Soft, No Tenderness, No Guarding, No Rebound Extremity: Normal ROM, Tenderness (tenderness to right upper arm), Other (no pitting edema) Neurological/Psych: Oriented x3, Normal Speech ED Course And Treatment - Laboratory Results Result Diagrams: 05/14/18 11:25 05/14/18 11:25 Lab Results: pO2 22 mm/Hg (30-55) L 05/14/18 11:25 VBG pH 7.41 (7.32-7.43) 05/14/18 11:25 VBG pCO2 53 mmHg (40-60) 05/14/18 11:25 VBG HCO3 29.0 mmol/L 05/14/18 11:25 VBG Total CO2 35.2 mmol/L (22-28) H 05/14/18 11:25 VBG O2 Sat (Calc) 36.4 % (40-65) L 05/14/18 11:25 VBG Base Excess 7.3 mmol/L (0.0-2.0) H 05/14/18 11:25 VBG Potassium 4.1 mmol/L (3.6-5.2) 05/14/18 11:25 Sodium 138.0 mmol/l (132-148) 05/14/18 11:25 Chloride 102.0 mmol/L (98-107) 05/14/18 11:25 Glucose 123 mg/dl (65-105) H 05/14/18 11:25 Lactate 1.5 mmol/L (0.7-2.1) 05/14/18 11:25 O2 Sat by Pulse Oximetry: 95 (RA) Pulse Ox Interpretation: Normal Medical Decision Making Medical Decision Making: Plan: --Labs --UA --ECG --CXR Updates: Case discussed with Dr. Light. requested for to be contacted. Case discussed with . states that he will evaluate patient and he would like for patient to be NPO. Disposition Discussed With : Reese Shaw Counseled Patient/Family Regarding: Studies Performed, Diagnosis - Disposition Disposition: HOSPITALIZED Disposition Time: 12:37 Condition: GUARDED Forms: [facility] (Mongolian) - Clinical Impression Clinical Impression: Enterococcus infection in shunt, AV shunt malfunction - Scribe Statement The provider has reviewed the documentation as recorded by the Marinaibe Belen Moreland Provider Attestation: All medical record entries made by the Scribe were at my direction and personally dictated by me. I have reviewed the chart and agree that the record accurately reflects my personal performance of the history, physical exam, medical decision making, and the department course for this patient. I have also personally directed, reviewed, and agree with the discharge instructions and disposition. Decision To Admit - Pt Status Changed To: Hospital Disposition Of: Observation - . Bed Request Type: Regular Admitting Physician: Ryan Verde Patient Diagnosis: AV shunt malfunction
--- NOTE | 2018-05-14 11:59 | CP.PCM.CON ---
History of Present Illness - History of Present Illness History of Present Illness: History Of Present Illness 68 y/o female, w/PMhx of ESRD, brought to ER by BLS for infected AV Shunt. Holly ent states that she is currently undergoing hemodialysis and she was scheduled for dialysis today. Patient reports that she the dialysis center noticed that she has an infected AV shunt so they referred her to the ER. She notes that she has some pain with swelling and redness in the area around the shunt in the right upper arm. She states that she has some chills. Denies having fever. Has had swelling, erythema left AV fistula x 2 weeks. Was on treatment with iv vanco- had 3 doses post dialysis of 1 gm. + blood culture staph aureus On dialysis about 15 years; h/o nephrosclerosis; HTN, DM 2 Past Medical History Reviewed: Historical Data, Nursing Documentation, Vital Signs Vital Signs: Last Vital Signs Temp 99.0 F 05/14/18 11:32 Pulse 84 05/14/18 11:01 Resp 20 05/14/18 11:01 BP 131/64 05/14/18 11:01 Pulse Ox 95 05/14/18 11:01 - Medical History PMH: Anxiety, Arthritis, Asthma, COPD, Diabetes 2, HTN, Hypercholesterolemia, End Stage Renal Disease, Chronic Kidney Disease Other Surgeries: hx of surgeries Family History: States: No Known Family Hx; no CKD - Social History Hx Tobacco Use: No Hx Alcohol Use: No Hx Substance Use: No - Immunization History Hx Tetanus Toxoid Vaccination: Yes Hx Influenza Vaccination: Yes Hx Pneumococcal Vaccination: Yes Review Of Systems Except As Marked, All Systems Reviewed And Found Negative. Constitutional: Positive for: Chills. Negative for: Fever Gastrointestinal: Negative for: Nausea, Vomiting Musculoskeletal: Positive for: Other (right upper arm pain and swelling) Review of Systems - Constitutional Constitutional: Fatigue, Weakness - EENT Eyes: absent: As Per HPI, Blind Spots, Blurred Vision, Change in Vision, Dec reased Night Vision, Diplopia, Discharge, Dry Eye, Exophthalmos, Floaters, Irritation, Itchy Eyes, Loss of Peripheral Vision, Pain, Photophobia, Requires Corrective Lenses, Sees Flashes, Spots in Vision, Tunnel Vision, Other Visual Disturbances, Loss of Vision, Other Ears: absent: As Per HPI, Decreased Hearing, Ear Discharge, Ear Pain, Tinnitus, Abnormal Hearing, Disequilibrium, Dizziness, Other Nose/Mouth/Throat: absent: As Per HPI, Epistaxis, Nasal Congestion, Nasal Discharge, Nasal Obstruction, Nasal Trauma, Nose Pain, Post Nasal Drip, Sinus Pain, Sinus Pressure, Bleeding Gums, Change in Voice, Dental Pain, Dry Mouth, Dysphagia, Halitosis, Hoarsness, Lip Swelling, Mouth Lesions, Mouth Pain, Odynophagia, Sore Throat, Throat Swelling, Tongue Swelling, Facial Pain, Neck Pain, Neck Mass, Other - Cardiovascular Cardiovascular: Dyspnea on Exertion, Lightheadedness - Respiratory Respiratory: Cough - Gastrointestinal Gastrointestinal: absent: As Per HPI, Abdominal Pain, Belching, Bloating, Change in Bowel Habits, Change in Stool Character, Coffee Ground Emesis, Constipation, Cramping, Diarrhea, Dyspepsia, Dysphagia, Early Satiety, Excessive Flatus, Fecal Incontinence, Heartburn, Hematemesis, Hematochezia, Loose Stools, Melena, Nausea, Odynophagia, Temesmus, Vomiting, Other - Genitourinary Genitourinary: As Per HPI - Musculoskeletal Musculoskeletal: Muscle Cramps, Muscle Weakness, Myalgias - Neurological Neurological: Weakness Past Patient History - Infectious Disease Hx of Infectious Diseases: None - Past Medical History & Family History Past Family History: Reviewed and not pertinent - Past Social History Smoking Status: Never Smoked Chewing Tobacco Use: No Cigar Use: No Alcohol: None Drugs: Denies Home Situation {Lives}: With Family - CARDIAC Hx Hypercholesterolemia: Yes Hx Hypertension: Yes - PULMONARY Hx Asthma: Yes Hx Chronic Obstructive Pulmonary Disease (COPD): Yes - RENAL Hx Chronic Kidney Disease: Yes - ENDOCRINE/METABOLIC Hx Endocrine Disorders: Yes Hx Diabetes Mellitus Type 2: Yes - MUSCULOSKELETAL/RHEUMATOLOGICAL Hx Arthritis: Yes - PSYCHIATRIC Hx Anxiety: Yes Hx Substance Use: No - SURGICAL HISTORY Hx Surgeries: Yes Other/Comment: AV FISTULA PLACEMENT RIGHT ARM - ANESTHESIA Hx Anesthesia: No Hx Anesthesia Reactions: No Meds Allergies/Adverse Reactions: Allergies Allergy/AdvReac Type Severity Reaction Status Date / Time No Known Allergies Allergy Verified 09/10/17 16:37 Physical Exam - Head Exam Head Exam: ATRAUMATIC, NORMAL INSPECTION - Eye Exam Eye Exam: EOMI, Normal appearance - Neck Exam Neck exam: Positive for: Normal Inspection. Negative for: Tenderness - Respiratory Exam Respiratory Exam: Clear to Auscultation Bilateral, NORMAL BREATHING PATTERN - Cardiovascular Exam Cardiovascular Exam: REGULAR RHYTHM, +S1 - GI/Abdominal Exam GI & Abdominal Exam: Soft. absent: Tenderness - Extremities Exam Extremities exam: Positive for: pedal edema. Negative for: tenderness - Neurological Exam Neurological exam: Alert, CN II-XII Intact - Skin Skin Exam: Dry, Warm Results - Vital Signs Recent Vital Signs: Last Vital Signs Temp 99.0 F 05/14/18 11:32 Pulse 84 05/14/18 10:50 Resp 20 05/14/18 11:01 BP 131/64 05/14/18 10:50 Pulse Ox 95 05/14/18 11:54 - Labs Result Diagrams: 05/14/18 11:25 Labs: Laboratory Results - last 24 hr 05/14/18 05/14/18 05/14/18 11:25 11:25 11:25 WBC 9.7 RBC 2.95 L Hgb 9.5 L Hct 29.3 L MCV 99.3 H MCH 32.3 H MCHC 32.5 L RDW 17.2 H Plt Count 329 D MPV 8.9 Neut % (Auto) 71.6 Lymph % (Auto) 17.6 L [place] % (Auto) 7.9 Eos % (Auto) 2.2 Baso % (Auto) 0.7 Neut # (Auto) 6.9 Lymph # (Auto) 1.7 [place] # (Auto) 0.8 Eos # (Auto) 0.2 Baso # (Auto) 0.1 PT 11.5 INR 1.1 APTT 36 H pO2 22 L VBG pH 7.41 VBG pCO2 53 VBG HCO3 29.0 VBG Total CO2 35.2 H VBG O2 Sat (Calc) 36.4 L VBG Base Excess 7.3 H VBG Potassium 4.1 Sodium 138.0 Chloride 102.0 Glucose 123 H Lactate 1.5 Venous Blood Potassium 4.1 Assessment & Plan (1) Hypertensive chronic kidney disease with stage 5 chronic kidney disease or end stage renal disease Status: Acute (2) Failure of hemodialysis access Status: Acute (3) COPD (chronic obstructive pulmonary disease) Status: Acute (4) ESRD (end stage renal disease) Status: Acute (5) Abscess Status: Acute - Assessment and Plan (Free Text) Plan: IV ABs, cultures surgery eval- needs new catheter then dialysis then revision/possible ligation av fistula
[2018-05-14 12:04] LABS: ALB/GLOB RATIO 1.1 (1.0-2.1); ALBUMIN 3.7 g/dL (3.5-5.0); CALCIUM 10.2 mg/dl (8.6-10.4)
--- NOTE | 2018-05-14 12:28 | CP.PCM.CON ---
History of Present Illness - History of Present Illness History of Present Illness: Vascular Surgery consult note for Dr. Hernandez consulted for infected fistula and need for dialysis access Patient is a 68 F with PMH ESRD on HD for 15 years, HTN, DM2, dyslipidemia, asthma who presents after being sent from dialysis center with erythematous, painful fistula site. Patient states site has been red and swollen for a pproximately 2 days. She endorses pain to the right arm at the site of the fistula. She endorses fevers but otherwise denies VANESSA, CP, SOB abdominal pain, n/v, chills and stool changes. PMH: ESRD on HD for 15 years, HTN, DM2, dyslipidemia, asthma PSH: right av fistula approximately 12 years ago Meds: Amlodipine 5 mg PO QD, Tramadol 50 mg BID, Xanax 1 mg once daily, Potassium acetate 3 capsules TID, Omeprazole 40 mg QD, Advair 250 BID, Albuterol INH as needed Allx: None FHx: mother with DM2. 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 Review of Systems - Review of Systems All systems: reviewed and no additional remarkable complaints except (as per HPI) Past Patient History - Infectious Disease Hx of Infectious Diseases: None - Past Medical History & Family History Past Family History: Reviewed and not pertinent - Past Social History Smoking Status: Never Smoked Chewing Tobacco Use: No Cigar Use: No Alcohol: None Drugs: Denies Home Situation {Lives}: With Family - CARDIAC Hx Hypercholesterolemia: Yes Hx Hypertension: Yes - PULMONARY Hx Asthma: Yes Hx Chronic Obstructive Pulmonary Disease (COPD): Yes - RENAL Hx Chronic Kidney Disease: Yes - ENDOCRINE/METABOLIC Hx Endocrine Disorders: Yes Hx Diabetes Mellitus Type 2: Yes - MUSCULOSKELETAL/RHEUMATOLOGICAL Hx Arthritis: Yes - PSYCHIATRIC Hx Anxiety: Yes Hx Substance Use: No - SURGICAL HISTORY Hx Surgeries: Yes Other/Comment: AV FISTULA PLACEMENT RIGHT ARM - ANESTHESIA Hx Anesthesia: No Hx Anesthesia Reactions: No Meds Allergies/Adverse Reactions: Allergies Allergy/AdvReac Type Severity Reaction Status Date / Time No Known Allergies Allergy Verified 09/10/17 16:37 - Medications Medications: Current Medications Vancomycin HCl 1 gm/ Sodium (Chloride) 250 mls @ 167 mls/hr IVPB MWF ROSSY; Protocol Physical Exam - Constitutional Appears: Well, Non-toxic, No Acute Distress - Head Exam Head Exam: ATRAUMATIC - Eye Exam Eye Exam: EOMI - ENT Exam ENT Exam: Mucous Membranes Moist - Respiratory Exam Respiratory Exam: NORMAL BREATHING PATTERN - Cardiovascular Exam Cardiovascular Exam: REGULAR RHYTHM - GI/Abdominal Exam GI & Abdominal Exam: Soft. absent: Tenderness - Extremities Exam Additional comments: eryhtematous, edematous and tender right antecubital fossa at site of fistula, purulent fluid and blood oozing, thrill of fistula palpable, pulses distal to site intact - Neurological Exam Neurological exam: Alert, Oriented x3 - Psychiatric Exam Psychiatric exam: Normal Affect, Normal Mood - Skin Skin Exam: Erythema, Warm Results - Vital Signs Recent Vital Signs: Last Vital Signs Temp 99.0 F 05/14/18 11:32 Pulse 84 05/14/18 10:50 Resp 20 05/14/18 11:01 BP 131/64 05/14/18 10:50 Pulse Ox 95 05/14/18 11:54 - Labs Result Diagrams: 05/14/18 11:25 05/14/18 11:25 Labs: Laboratory Results - last 24 hr 05/14/18 05/14/18 05/14/18 11:25 11:25 11:25 WBC 9.7 RBC 2.95 L Hgb 9.5 L Hct 29.3 L MCV 99.3 H MCH 32.3 H MCHC 32.5 L RDW 17.2 H Plt Count 329 D MPV 8.9 Neut % (Auto) 71.6 Lymph % (Auto) 17.6 L [place] % (Auto) 7.9 Eos % (Auto) 2.2 Baso % (Auto) 0.7 Neut # (Auto) 6.9 Lymph # (Auto) 1.7 [place] # (Auto) 0.8 Eos # (Auto) 0.2 Baso # (Auto) 0.1 PT 11.5 INR 1.1 APTT 36 H pO2 22 L VBG pH 7.41 VBG pCO2 53 VBG HCO3 29.0 VBG Total CO2 35.2 H VBG O2 Sat (Calc) 36.4 L VBG Base Excess 7.3 H VBG Potassium 4.1 Sodium 138.0 Chloride 102.0 Glucose 123 H Lactate 1.5 Potassium Carbon Dioxide Anion Gap BUN Creatinine Est GFR ( Amer) Est GFR (Non-Af Amer) Random Glucose Calcium Phosphorus Magnesium Total Bilirubin AST ALT Alkaline Phosphatase Total Protein Albumin Globulin Albumin/Globulin Ratio Venous Blood Potassium 4.1 05/14/18 11:25 WBC RBC Hgb Hct MCV MCH MCHC RDW Plt Count MPV Neut % (Auto) Lymph % (Auto) [place] % (Auto) Eos % (Auto) Baso % (Auto) Neut # (Auto) Lymph # (Auto) [place] # (Auto) Eos # (Auto) Baso # (Auto) PT INR APTT pO2 VBG pH VBG pCO2 VBG HCO3 VBG Total CO2 VBG O2 Sat (Calc) VBG Base Excess VBG Potassium Sodium 135 Chloride 93 L Glucose Lactate Potassium 4.2 Carbon Dioxide 33 H Anion Gap 13 BUN 49 H Creatinine 9.7 H* D Est GFR ( Amer) 5 Est GFR (Non-Af Amer) 4 Random Glucose 126 H Calcium 10.2 Phosphorus 3.3 Magnesium 2.3 Total Bilirubin 0.5 AST 40 H D ALT 21 Alkaline Phosphatase 95 Total Protein 7.0 Albumin 3.7 Globulin 3.3 Albumin/Globulin Ratio 1.1 Venous Blood Potassium Assessment & Plan - Assessment and Plan (Free Text) Assessment: 68 yr old female with PMH ESRD on dialysis MWF presents with infected fistula and need for dialysis today Plan: - operative exploration of right arm fistula and permacath placement - recommend ID consult, Abx per ID - pt seen and examined with Dr. Hernandez, further recs per him Karmen sIaac, PGY 1 - Date & Time Date: 05/14/18 Time: 12:15
--- NOTE | 2018-05-14 13:16 | CP.PCM.HP ---
<Romie Zapata - Last Filed: 05/14/18 17:17> History of Present Illness - History of Present Illness History of Present Illness: PGY1 Medicine History and Physical for Dr. Verde CC: sent from dialysis center for infected AVF This is a 68 year old Singaporean speaking female with PMHx of ESRD on HD for 15 years, HTN, DM2, asthma who presents with worsening swelling, erythema, pain to her right AV fistula site for the past 1 week. Endorses waking up this morning with blood covered sheets from the right AVF site. Pt admits to intermittent chills, denies fevers. Denies chest pain, sob, cough, abdominal pain, n/v/d, hematochezia, melena. PMD: ciara Nephro: Kuldeep PMH: ESRD on HD for 15 years, HTN, DM2, dyslipidemia, asthma PSH: right av fistula approximately 12 years ago Meds: Amlodipine 5 mg PO QD, Tramadol 50 mg BID, Xanax 1 mg once daily, Potassium acetate 3 capsules TID, Omeprazole 40 mg QD, Advair 250 BID, Albuterol INH as needed Allx: None FHx: mother with DM2. 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 Present on Admission - Present on Admission Any Indicators Present on Admission: No Review of Systems - Review of Systems All systems: reviewed and no additional remarkable complaints except (as per HPI) Past Patient History - Infectious Disease Hx of Infectious Diseases: None - Past Medical History & Family History Past Family History: Reviewed and not pertinent - Past Social History Smoking Status: Never Smoked Chewing Tobacco Use: No Cigar Use: No Alcohol: None Drugs: Denies Home Situation {Lives}: With Family - CARDIAC Hx Hypercholesterolemia: Yes Hx Hypertension: Yes - PULMONARY Hx Asthma: Yes Hx Chronic Obstructive Pulmonary Disease (COPD): Yes - RENAL Hx Chronic Kidney Disease: Yes - ENDOCRINE/METABOLIC Hx Endocrine Disorders: Yes Hx Diabetes Mellitus Type 2: Yes - MUSCULOSKELETAL/RHEUMATOLOGICAL Hx Arthritis: Yes - PSYCHIATRIC Hx Anxiety: Yes Hx Substance Use: No - SURGICAL HISTORY Hx Surgeries: Yes Other/Comment: AV FISTULA PLACEMENT RIGHT ARM - ANESTHESIA Hx Anesthesia: No Hx Anesthesia Reactions: No Meds Allergies/Adverse Reactions: Allergies Allergy/AdvReac Type Severity Reaction Status Date / Time No Known Allergies Allergy Verified 09/10/17 16:37 Physical Exam - Constitutional Appears: Non-toxic, No Acute Distress, Older Than Stated Age - Head Exam Head Exam: ATRAUMATIC, NORMAL INSPECTION - Eye Exam Eye Exam: EOMI, Normal appearance - ENT Exam ENT Exam: Mucous Membranes Moist - Neck Exam Neck exam: Positive for: Normal Inspection - Respiratory Exam Respiratory Exam: Clear to Auscultation Bilateral, Rales (at the bases bilaterally). absent: Wheezes, Respiratory Distress - Cardiovascular Exam Cardiovascular Exam: REGULAR RHYTHM, +S1, +S2. absent: Tachycardia, Diastolic murmur, Irregular Rhythm, Systolic Murmur - GI/Abdominal Exam GI & Abdominal Exam: Normal Bowel Sounds, Soft. absent: Distended, Firm, Guarding, Rigid, Tenderness - Extremities Exam Extremities exam: Positive for: normal inspection, pedal edema (1+ bilaterally to mid yang), pedal pulses present (2+ in bilateral upper and lower distal extremities). Negative for: calf tenderness - Back Exam Back exam: NORMAL INSPECTION - Neurological Exam Neurological exam: Alert, Oriented x3 - Psychiatric Exam Psychiatric exam: Normal Affect, Normal Mood - Skin Skin Exam: Dry, Normal Color, Warm Additional comments: (+) erythema, swelling, warmth and moderate tendrness around the right AV fistula site; no induration, no active bleeding; pulses distally are intact, sensation is intact. Results - Vital Signs Recent Vital Signs: Last Vital Signs Temp 99.0 F 05/14/18 11:32 Pulse 84 05/14/18 10:50 Resp 20 05/14/18 11:01 BP 131/64 05/14/18 10:50 Pulse Ox 95 05/14/18 12:41 - Labs Result Diagrams: 05/14/18 11:25 05/14/18 11:25 Labs: Laboratory Results - last 24 hr 05/14/18 05/14/18 05/14/18 11:25 11:25 11:25 WBC 9.7 RBC 2.95 L Hgb 9.5 L Hct 29.3 L MCV 99.3 H MCH 32.3 H MCHC 32.5 L RDW 17.2 H Plt Count 329 D MPV 8.9 Neut % (Auto) 71.6 Lymph % (Auto) 17.6 L [place] % (Auto) 7.9 Eos % (Auto) 2.2 Baso % (Auto) 0.7 Neut # (Auto) 6.9 Lymph # (Auto) 1.7 [place] # (Auto) 0.8 Eos # (Auto) 0.2 Baso # (Auto) 0.1 PT 11.5 INR 1.1 APTT 36 H pO2 22 L VBG pH 7.41 VBG pCO2 53 VBG HCO3 29.0 VBG Total CO2 35.2 H VBG O2 Sat (Calc) 36.4 L VBG Base Excess 7.3 H VBG Potassium 4.1 Sodium 138.0 Chloride 102.0 Glucose 123 H Lactate 1.5 Potassium Carbon Dioxide Anion Gap BUN Creatinine Est GFR ( Amer) Est GFR (Non-Af Amer) Random Glucose Calcium Phosphorus Magnesium Total Bilirubin AST ALT Alkaline Phosphatase Total Protein Albumin Globulin Albumin/Globulin Ratio Venous Blood Potassium 4.1 05/14/18 11:25 WBC RBC Hgb Hct MCV MCH MCHC RDW Plt Count MPV Neut % (Auto) Lymph % (Auto) [place] % (Auto) Eos % (Auto) Baso % (Auto) Neut # (Auto) Lymph # (Auto) [place] # (Auto) Eos # (Auto) Baso # (Auto) PT INR APTT pO2 VBG pH VBG pCO2 VBG HCO3 VBG Total CO2 VBG O2 Sat (Calc) VBG Base Excess VBG Potassium Sodium 135 Chloride 93 L Glucose Lactate Potassium 4.2 Carbon Dioxide 33 H Anion Gap 13 BUN 49 H Creatinine 9.7 H* D Est GFR ( Amer) 5 Est GFR (Non-Af Amer) 4 Random Glucose 126 H Calcium 10.2 Phosphorus 3.3 Magnesium 2.3 Total Bilirubin 0.5 AST 40 H D ALT 21 Alkaline Phosphatase 95 Total Protein 7.0 Albumin 3.7 Globulin 3.3 Albumin/Globulin Ratio 1.1 Venous Blood Potassium Assessment & Plan - Assessment and Plan (Free Text) Assessment: This is a 68 year old Singaporean speaking female with PMHx of ESRD on HD for 15 years, HTN, DM2, asthma who presents with worsening swelling, erythema, pain to her right AV fistula site for the past 1 week. Plan: Bacteremia As per Dr. Light note, blood culture positive for staph aureus. Pt is s/p 3 doses of vancomycin 1g IVPB with dialysis last week Continue Vancomycin 1g with dialysis Renally dosed Zosyn 2.25 g IVPB q8h F/u repeat BCx on this admission Cellulitis of the right upper arm Vancomycin, Zosyn as above Nonfunctioning right AVF Dr. Hernandez, vascular surgery, consulted. As per surgery, pt with infected stent inside infected aneursym. s/p excision of area. Left permacath placed today. Anemia, normocytic Hgb is 9.5, it was 11.5 on 05/03/18 Likely secondary to bleeding from the AVF Pt asymptomatic, no indication for transfusion at this time Continue to monitor Hx of HTN Pt is normotensive Will hold home amlodipine at this time Continue to monitor F/u Lipid panel in am Hx of DM2 Accucheck ACHS ISS low F/u HgbA1c in am PPx: VTE: chemical VTE ppx on hold due to OR, SCDS GI: not indicated <Ryan Verde - Last Filed: 05/14/18 17:26> Results - Vital Signs Recent Vital Signs: Last Vital Signs Temp 99.0 F 05/14/18 11:32 Pulse 84 05/14/18 10:50 Resp 20 05/14/18 11:01 BP 131/64 05/14/18 10:50 Pulse Ox 95 05/14/18 12:41 - Labs Result Diagrams: 05/14/18 11:25 05/14/18 11:25 Labs: Laboratory Results - last 24 hr 05/14/18 05/14/18 05/14/18 11:25 11:25 11:25 WBC 9.7 RBC 2.95 L Hgb 9.5 L Hct 29.3 L MCV 99.3 H MCH 32.3 H MCHC 32.5 L RDW 17.2 H Plt Count 329 D MPV 8.9 Neut % (Auto) 71.6 Lymph % (Auto) 17.6 L [place] % (Auto) 7.9 Eos % (Auto) 2.2 Baso % (Auto) 0.7 Neut # (Auto) 6.9 Lymph # (Auto) 1.7 [place] # (Auto) 0.8 Eos # (Auto) 0.2 Baso # (Auto) 0.1 PT 11.5 INR 1.1 APTT 36 H pO2 22 L VBG pH 7.41 VBG pCO2 53 VBG HCO3 29.0 VBG Total CO2 35.2 H VBG O2 Sat (Calc) 36.4 L VBG Base Excess 7.3 H VBG Potassium 4.1 Sodium 138.0 Chloride 102.0 Glucose 123 H Lactate 1.5 Potassium Carbon Dioxide Anion Gap BUN Creatinine Est GFR ( Amer) Est GFR (Non-Af Amer) POC Glucose (mg/dL) Random Glucose Calcium Phosphorus Magnesium Total Bilirubin AST ALT Alkaline Phosphatase Total Protein Albumin Globulin Albumin/Globulin Ratio Venous Blood Potassium 4.1 05/14/18 05/14/18 05/14/18 11:25 14:10 17:18 WBC RBC Hgb Hct MCV MCH MCHC RDW Plt Count MPV Neut % (Auto) Lymph % (Auto) [place] % (Auto) Eos % (Auto) Baso % (Auto) Neut # (Auto) Lymph # (Auto) [place] # (Auto) Eos # (Auto) Baso # (Auto) PT INR APTT pO2 28 L VBG pH 7.45 H VBG pCO2 46 VBG HCO3 29.2 VBG Total CO2 33.4 H VBG O2 Sat (Calc) 54.5 VBG Base Excess 6.9 H VBG Potassium 4.3 Sodium 135 138.0 Chloride 93 L 102.0 Glucose 84 Lactate 1.5 Potassium 4.2 Carbon Dioxide 33 H Anion Gap 13 BUN 49 H Creatinine 9.7 H* D Est GFR ( Amer) 5 Est GFR (Non-Af Amer) 4 POC Glucose (mg/dL) 130 H Random Glucose 126 H Calcium 10.2 Phosphorus 3.3 Magnesium 2.3 Total Bilirubin 0.5 AST 40 H D ALT 21 Alkaline Phosphatase 95 Total Protein 7.0 Albumin 3.7 Globulin 3.3 Albumin/Globulin Ratio 1.1 Venous Blood Potassium 4.3 Attending/Attestation - Attestation I have personally seen and examined this patient.: Yes I have fully participated in the care of the patient.: Yes I have reviewed all pertinent clinical information: Yes Notes (Text): 05/14/18 17:24 Medical attending: Patient was seen and examined by me. Agree with the above note by the resident The patient was not in any acute distress when I came and saw She was very soon brought to the OR for the infected dialysis graft and also the patient had placement of a permacath as well She will be getting HD later today as well IV abx, blood cultures Ryan Verde
--- NOTE | 2018-05-14 13:36 | RAD ---
Chest x-ray single frontal view History: Sepsis. Comparison: 05/03/2018 Findings: Biapical pleural thickening with upper lobe granulomatous changes. Moderate venous congestion. Patchy bibasilar airspace opacities. Elevated right hemidiaphragm. Enlarged ectatic aorta. Cardiomegaly. Degenerative changes in the spine and shoulders. Impression: Biapical pleural thickening with upper lobe granulomatous changes. Moderate venous congestion. Patchy bibasilar airspace opacities. Elevated right hemidiaphragm. Enlarged ectatic aorta. Cardiomegaly.
[2018-05-14] MEDS ORDERED: Midazolam 2 MG/2 ML VIAL ONE (13:54)
[2018-05-14] MEDS ORDERED: Propofol 10 mg/ml Inj (20 ML) ONE (13:54)
[2018-05-14 14:18] LABS: VENOUS BLOOD GAS BASE EXCESS 6.9 mmol/L (0.0-2.0); VENOUS BLOOD GAS PCO2 46 mmHg (40-60); VENOUS BLOOD GAS PO2 28 mm/Hg (30-55); VENOUS BLOOD PH 7.45 (7.32-7.43)
[2018-05-14] MEDS ORDERED: Lidocaine Hydrochloride 10 ML INJ ONE (14:25)
[2018-05-14] MEDS ORDERED: Vancomycin 1 gm/D5W 200 ml 1 GM/200 ML BAG IVPB ONE (14:25)
[2018-05-14] MEDS ORDERED: HEPARIN-NS 5,000 UNITS/500 ML 5,000 UNIT/500 ML BAG IV ONE (14:25)
[2018-05-14] MEDS ORDERED: Neostigmine 1:1000 (1 mg/ml) Inj ONE (16:51)
--- NOTE | 2018-05-14 17:14 | PCM.SURG1 ---
Surgeon's Initial Post Op Note - Surgeon's Notes Surgeon: Dr. Clayton Pelota Maker: Dr. Karmen Isaac, PGY 1 Type of Anesthesia: General Endo Pre-Operative Diagnosis: infected right arm fistula with stent, need for dialysis access Operative Findings: infected fistula with stent Post-Operative Diagnosis: infected fistula with stent, need for dialysis access Operation Performed: left IJ permacath placement, right arm excision of infected fistula and stent Specimen/Specimens Removed: stent and infected tissue Estimated Blood Loss: EBL {In ML}: 100 Drains Used: No Drains Post-Op Condition: Good Date of Surgery/Procedure: 05/14/18 Time of Surgery/Procedure: 13:30
[2018-05-14] MEDS ORDERED: HYDROmorphone 0.5 mg/0.5 ml ISec IVP PRN (17:16)
[2018-05-14] MEDS: HYDROmorphone 0.5 mg/0.5 ml ISec IVP PRN ×2 (17:59→18:09)
--- NOTE | 2018-05-14 18:24 | RAD ---
HISTORY: s/p permacath placement COMPARISON: Chest x-ray performed 05/14/18 TECHNIQUE: Chest, one view. FINDINGS: Examination limited by habitus. Left-sided dialysis catheter with tips at the SVC/cavoatrial junction. LUNGS: Pulmonary venous congestion. Please note that chest x-ray has limited sensitivity for the detection of pulmonary masses. PLEURA: No significant pleural effusion identified. No definite pneumothorax . CARDIOVASCULAR: Cardiomegaly. Ectatic aorta. Atherosclerotic calcifications of the aorta. OSSEOUS STRUCTURES: Degenerative changes. VISUALIZED UPPER ABDOMEN: Unremarkable. OTHER FINDINGS: None. IMPRESSION: Left-sided dialysis catheter with tips at the SVC/cavoatrial junction. Cardiomegaly. Ectatic aorta. Pulmonary venous congestion.
--- NOTE | 2018-05-14 18:41 | RAD ---
Date of service: 05/14/2018 PROCEDURE: Intraoperative Fluoroscopy. HISTORY: RENAL FAILURE FINDINGS: Fluoroscopic assistance was provided for PermCath placement. Please refer to the operative report from SCOOT[facility] Garcia. Total fluoroscopic time (continuous mode) utilized during the procedure 6.6 seconds. Dose report: DLP [id number] (mGy/m2)
[2018-05-15] MEDS: Piperacill/Tazo 2.25gm in Dex 2.25 GM/50 ML BAG IVPB SCH ×3 (00:58→16:54)
[2018-05-15 06:37] LABS: SQUAMOUS EPITHIAL 49 /hpf (0-5); URINE BACTERIA OCC (<OCC); URINE BILIRUBIN NEGATIVE (NEGATIVE); URINE BLOOD NEGATIVE (NEGATIVE); URINE CLARITY Hazy (Clear); URINE COLOR Yellow (YELLOW); URINE GLUCOSE (UA) NORMAL (Normal); URINE LEUKOCYTE ESTERASE TRACE Leu/uL (Negative); URINE PROTEIN 1+ mg/dL (NEGATIVE); URINE UROBILINOGEN NORMAL mg/dL (0.2-1.0)
--- NOTE | 2018-05-15 06:46 | OP ---
PROCEDURE DATE: 05/14/2018 PREOPERATIVE DIAGNOSES: Infected shunt, fistula right arm, and renal failure. POSTOPERATIVE DIAGNOSES: Infected shunt, fistula right arm, and renal failure. PROCEDURE: 1. Placement of PermCath, left jugular vein with C-arm fluoroscopy, ultrasound-guided puncture and micropuncture technique. 2. Excision of infected stent graft in right arm. SURGEON: Javon Hernandez Jr., MD [place] DISPENSER: One of the registered resident physician. ANESTHESIOLOGIST: At the end was Dr. Hermosillo. INDICATION: The patient is a 68-year-old woman with renal failure, had a fistula in right arm. She presented with a gross infection, pus coming out of her arm. In need for urgent dialysis. OPERATIVE FINDINGS: 1. The right jugular vein is occluded. 2. Using ultrasound guidance and micropuncture technique, we placed the catheter via the left jugular vein. This went uneventfully. It originated on left chest wall, went through the jugular vein, terminated in the superior vena cava. It was flushed with heparinized saline, and was in good position and tunneled appropriately. Ultrasound images of the neck initially showed that the vein was approximately 18 mm in diameter with normal compressibility and no intraluminal thrombosis. After this had been done, we then re-prepped, re-draped, and went to the right arm. Using ultrasound, we identified the bleeding vessel into the fistula which was very brown, indurated and draining pus. Initially, we attempted to obtain control of proximal portion of this but was not completely successful in doing this. There is a small amount of bleeding and a difficulty discerning the arteries and the veins in this heavily inflamed area. After this had been done, and has difficulty obtaining this, we then placed a tourniquet on the wound, directly incised the infected aneurysm. We then oversewed the proximal and distal ends of this, and that controlled bleeding quite well, and we will ask for removal of the infected stent graft. This appeared to be a bare-metal stent which was removed. The wound was then packed open. The original incision where control was closed loosely with 5-0 Nylon sutures. Blood loss during the entire procedure was less than 30 mL. OPERATION CARRIED OUT: 1. PermCath, left jugular vein with C-arm fluoroscopy, ultrasound-guided puncture, and micropuncture technique. 2. Excision of infected graft, right arm. Javon Hernandez Jr., MD cc: Nimesh Light MD
--- NOTE | 2018-05-15 08:24 | CP.PCM.PN ---
Subjective - Date & Time of Evaluation Date of Evaluation: 05/15/18 Time of Evaluation: 08:21 - Subjective Subjective: Surgical Progress Note for Dr. Hernandez Patient seen and examined at bedside. She has no complaints at this time. She is scheduled for dialysis MWF. She denies fevers, chills, headache, dizziness, chest pain, shortness of breath, abdominal pain, nausea, vomiting, diarrhea, dysuria, leg pain. Objective - Vital Signs/Intake and Output Vital Signs (last 24 hours): Temp Pulse Resp BP Pulse Ox 97.9 F 82 20 94/66 L 96 05/15/18 07:25 05/15/18 07:25 05/15/18 07:25 05/15/18 07:25 05/15/18 07:25 Intake and Output: 05/15/18 05/15/18 06:59 18:59 Intake Total 160 Balance 160 - Medications Medications: Current Medications Hydromorphone HCl (Dilaudid) 0.5 mg IVP Q4H PRN PRN Reason: Pain, severe (8-10) Vancomycin HCl 1 gm/ Sodium (Chloride) 250 mls @ 167 mls/hr IVPB MWF [facility]; Protocol Piperacillin Sod/Tazobactam Sod (Zosyn 2.25 Gm Iv Premix) 2.25 gm in 50 mls @ 100 mls/hr IVPB Q8H [facility]; Protocol Last Admin: 05/15/18 00:58 Dose: 100 mls/hr Pantoprazole Sodium (Protonix Ec Tab) 40 mg PO DAILY ROSSY - Labs Labs: 05/14/18 11:25 05/14/18 11:25 PT 11.5 SECONDS (9.7-12.2) 05/14/18 11:25 INR 1.1 05/14/18 11:25 APTT 36 SECONDS (21-34) H 05/14/18 11:25 - Constitutional Appears: Well, No Acute Distress - Head Exam Head Exam: ATRAUMATIC, NORMOCEPHALIC - Eye Exam Eye Exam: EOMI, PERRL - ENT Exam ENT Exam: Mucous Membranes Moist - Respiratory Exam Respiratory Exam: NORMAL BREATHING PATTERN - Cardiovascular Exam Cardiovascular Exam: REGULAR RHYTHM, +S1, +S2 - GI/Abdominal Exam GI & Abdominal Exam: Soft, Normal Bowel Sounds - Extremities Exam Extremities Exam: absent: Calf Tenderness Additional comments: Fistula site on right arm healing well, dressing clean dry and intact. Left IJ permacath in place - Neurological Exam Neurological Exam: Alert, Awake, Oriented x3 Assessment and Plan - Assessment and Plan (Free Text) Assessment: 68 year old female with ESRD on HD who is POD 1 for excision of infected right arm fistula, placement of right IJ permacath Plan: Continue dialysis MWF Change packing Continue antibiotics as per ID recommendations Declan Chacko, PGY1
--- NOTE | 2018-05-15 09:57 | CP.PCM.PN ---
Subjective - Date & Time of Evaluation Date of Evaluation: 05/15/18 Time of Evaluation: 10:00 - Subjective Subjective: bp stable afebrile no new chems comfortable supine ROS no chills fever no chest pain no sob no abd pain,n,v,d no dysuria Objective - Vital Signs/Intake and Output Vital Signs (last 24 hours): Temp Pulse Resp BP Pulse Ox 97.9 F 82 20 94/66 L 96 05/15/18 07:25 05/15/18 07:25 05/15/18 07:25 05/15/18 07:25 05/15/18 07:25 Intake and Output: 05/15/18 05/15/18 06:59 18:59 Intake Total 160 Balance 160 - Medications Medications: Current Medications Hydromorphone HCl (Dilaudid) 0.5 mg IVP Q4H PRN PRN Reason: Pain, severe (8-10) Vancomycin HCl 1 gm/ Sodium (Chloride) 250 mls @ 167 mls/hr IVPB MWF [facility]; Protocol Piperacillin Sod/Tazobactam Sod (Zosyn 2.25 Gm Iv Premix) 2.25 gm in 50 mls @ 100 mls/hr IVPB Q8H [facility]; Protocol Last Admin: 05/15/18 00:58 Dose: 100 mls/hr Pantoprazole Sodium (Protonix Ec Tab) 40 mg PO DAILY [facility] - Labs Labs: 05/14/18 11:25 05/14/18 11:25 PT 11.5 SECONDS (9.7-12.2) 05/14/18 11:25 INR 1.1 05/14/18 11:25 APTT 36 SECONDS (21-34) H 05/14/18 11:25 - Constitutional Appears: Well, No Acute Distress - ENT Exam ENT Exam: Mucous Membranes Moist - Respiratory Exam Respiratory Exam: Clear to Ausculation Bilateral, NORMAL BREATHING PATTERN - Cardiovascular Exam Cardiovascular Exam: REGULAR RHYTHM. absent: JVD - GI/Abdominal Exam GI & Abdominal Exam: Soft. absent: Distended, Tenderness Additional comments: obese - Extremities Exam Extremities Exam: absent: Calf Tenderness Additional comments: rt arm bandage - Back Exam Back Exam: absent: CVA tenderness (L), CVA tenderness (R) - Neurological Exam Neurological Exam: Alert, Awake - Psychiatric Exam Psychiatric exam: Normal Mood - Skin Skin Exam: Dry, Warm Assessment and Plan (1) Abscess Status: Acute (2) COPD (chronic obstructive pulmonary disease) Status: Acute (3) ESRD (end stage renal disease) Status: Acute - Assessment and Plan (Free Text) Plan: schedule dialysis for 05/16 orders written
[2018-05-15 11:35] LABS: BASO # 0.1 K/uL (0.0-0.2); BASO % 0.7 % (0.0-2.0); EOS # 0.2 K/uL (0.0-0.7); LYMPH # 1.6 K/uL (1.0-4.3); LYMPH % 18.3 % (20.0-40.0); MEAN CELL VOLUME 99.3 fL (81.0-99.0); MEAN CORPUSCULAR HEMOGLOBIN 33.6 pg (27.0-31.0); MEAN CORPUSCULAR HGB CONC 33.8 g/dL (33.0-37.0); MEAN PLATELET VOLUME 8.8 fL (7.2-11.7); MONO # 0.7 K/uL (0.0-0.8); MONO % 7.6 % (0.0-10.0); NEUT # 6.4 K/uL (1.8-7.0); NEUT % 71.4 % (50.0-75.0); RBC 2.68 Mil/uL (3.80-5.20); RED CELL DISTRIBUTION WIDTH 17.5 % (11.5-14.5)
[2018-05-15] MEDS: Pantoprazole 40 mg EC Tab PO SCH (11:54)
[2018-05-15 12:01] LABS: ALB/GLOB RATIO 1.1 (1.0-2.1); ALBUMIN 3.6 g/dL (3.5-5.0)
--- NOTE | 2018-05-15 12:57 | CP.PCM.PN ---
<Vik Tee - Last Filed: 05/15/18 14:51> Subjective - Date & Time of Evaluation Date of Evaluation: 05/15/18 Time of Evaluation: 07:00 - Subjective Subjective: PGY-[address] Ryan Verde service Patient is seen and examined at bedside. Patient underwent right avf incision and left IJ permacath placement, now pod #1. Patient admits to pain and discomfort in her left neck area, where permacath is placed. Patient reports no bleeding her left arm avf area, denies pain in the area. Patient complains of intermittent, productive cough with white phlegm. Denies fever, chills, chest pain, sob, n/v/d/c or urinary complaints. Patient is eating "a little", and is ambulating. Patient went for HD yesterday with no acute events. Objective - Vital Signs/Intake and Output Vital Signs (last 24 hours): Temp Pulse Resp BP Pulse Ox 97.9 F 82 20 94/66 L 96 05/15/18 07:25 05/15/18 07:25 05/15/18 07:25 05/15/18 07:25 05/15/18 07:25 Intake and Output: 05/15/18 05/15/18 06:59 18:59 Intake Total 160 Balance 160 - Medications Medications: Current Medications Hydromorphone HCl (Dilaudid) 0.5 mg IVP Q4H PRN PRN Reason: Pain, severe (8-10) Vancomycin HCl 1 gm/ Sodium (Chloride) 250 mls @ 167 mls/hr IVPB MWF [facility]; Protocol Piperacillin Sod/Tazobactam Sod (Zosyn 2.25 Gm Iv Premix) 2.25 gm in 50 mls @ 100 mls/hr IVPB Q8H [facility]; Protocol Last Admin: 05/15/18 10:30 Dose: 100 mls/hr Pantoprazole Sodium (Protonix Ec Tab) 40 mg PO DAILY [facility] Last Admin: 05/15/18 11:54 Dose: 40 mg - Labs Labs: 05/15/18 11:25 05/15/18 11:25 PT 11.5 SECONDS (9.7-12.2) 05/14/18 11:25 INR 1.1 05/14/18 11:25 APTT 36 SECONDS (21-34) H 05/14/18 11:25 - Constitutional Appears: Non-toxic, No Acute Distress - Head Exam Head Exam: ATRAUMATIC, NORMAL INSPECTION, NORMOCEPHALIC - Eye Exam Eye Exam: EOMI, Normal appearance - ENT Exam ENT Exam: Mucous Membranes Moist, Normal Exam - Neck Exam Neck Exam: Full ROM, Normal Inspection - Respiratory Exam Respiratory Exam: Clear to Ausculation Bilateral, NORMAL BREATHING PATTERN. absent: Rales, Rhonchi, Wheezes - Cardiovascular Exam Cardiovascular Exam: REGULAR RHYTHM, +S1, +S2 - GI/Abdominal Exam GI & Abdominal Exam: Soft, Normal Bowel Sounds. absent: Distended, Tenderness - Extremities Exam Additional comments: Right fistula site covered in dressing, clean and intact, nontender to palpation left IJ permacath in place - Back Exam Back Exam: NORMAL INSPECTION - Neurological Exam Neurological Exam: Alert, Awake, Oriented x3 - Psychiatric Exam Psychiatric exam: Normal Affect, Normal Mood - Skin Skin Exam: Dry, Normal Color, Warm Assessment and Plan - Assessment and Plan (Free Text) Assessment: This is a 68 year old Martiniquais speaking female with PMHx of ESRD on HD for 15 years, HTN, DM2, asthma who presents with worsening swelling, erythema, pain to her right AV fistula site for the past 1 week. patient is s/p Left IJ permacath placement, right arm excision of infected fistula and stent, POD #1 on IV abx Plan: Cellulitis of the right upper arm Vancomycin, Zosyn as above wound cx - gram positive cocci - pending sensitivites blood cx negative x 24 hours Nonfunctioning right AVF Left IJ permacath placement, right arm excision of infected fistula and stent - POD #1 Dr. Hernandez, vascular surgery, consulted. wound cx - gram positive cocci change packing, contiue abx as per ID hx of Bacteremia As per Dr. Light note, blood culture positive for staph aureus. Pt is s/p 3 doses of vancomycin 1g IVPB with dialysis last week wound cx - gram positive cocci - pend sensitivites Blood cx - negative x 24 hours Continue Vancomycin 1g with dialysis MWF continue Renally dosed Zosyn 2.25 g IVPB q8h Anemia, normocytic Hgb is 9.0 today Likely secondary to bleeding from the AVF Pt asymptomatic, no indication for transfusion at this time Continue to monitor ESRD on HD MWF - next dialysis 3/20 - Nephro - Dr Chow - will follow up recs Hx of HTN Pt is hypotensive - continue to monitor Will hold home amlodipine at this time Lipid panel TGC 193, Chol 140, HDL 79, HDL 20 Hx of DM2 Accucheck ACHS ISS low F/u HgbA1c - 5.8 PPx: VTE: heparin Q12H, SCDS GI: Protonix Percocet PRN moderate pain, dilaudid 0.5mg IVP for severe pain Plan discussed with Dr Mehreen tee <Ryan Verde - Last Filed: 05/15/18 17:11> Objective - Vital Signs/Intake and Output Vital Signs (last 24 hours): Temp Pulse Resp BP Pulse Ox 98.3 F 79 20 114/66 100 05/15/18 16:00 05/15/18 16:00 05/15/18 16:00 05/15/18 16:00 05/15/18 16:00 Intake and Output: 05/15/18 05/15/18 06:59 18:59 Intake Total 160 Balance 160 - Medications Medications: Current Medications Heparin Sodium (Porcine) (Heparin) 5,000 units SC Q12 [facility] Hydromorphone HCl (Dilaudid) 0.5 mg IVP Q4H PRN PRN Reason: Pain, severe (8-10) Vancomycin HCl 1 gm/ Sodium (Chloride) 250 mls @ 167 mls/hr IVPB MWF [facility]; Protocol Piperacillin Sod/Tazobactam Sod (Zosyn 2.25 Gm Iv Premix) 2.25 gm in 50 mls @ 100 mls/hr IVPB Q8H [facility]; Protocol Last Admin: 05/15/18 16:54 Dose: 100 mls/hr Oxycodone/Acetaminophen (Percocet 5/325 Mg Tab) 1 tab PO Q6H PRN PRN Reason: Pain, moderate (4-7) Stop: 05/18/18 13:11 Pantoprazole Sodium (Protonix Ec Tab) 40 mg PO DAILY [facility] Last Admin: 05/15/18 11:54 Dose: 40 mg - Labs Labs: 05/15/18 11:25 05/15/18 11:25 PT 11.5 SECONDS (9.7-12.2) 05/14/18 11:25 INR 1.1 05/14/18 11:25 APTT 36 SECONDS (21-34) H 05/14/18 11:25 Attending/Attestation - Attestation I have personally seen and examined this patient.: Yes I have fully participated in the care of the patient.: Yes I have reviewed all pertinent clinical information, including history, physical exam and plan: Yes Notes (Text): 05/15/18 16:55 Medical attending: Patient was seen and examined by me. Agree with the above note by the resident The patient was with family member at bedside She had HD yesterday night The patient remains on IV abx at this time. Cultures are negative at this moment Ryan Verde
[2018-05-15] MEDS: Oxycodone/Acetaminophen 5/325 mg Tab PO PRN (22:08)
[2018-05-16] MEDS: Piperacill/Tazo 2.25gm in Dex 2.25 GM/50 ML BAG IVPB SCH ×3 (01:00→16:29)
--- NOTE | 2018-05-16 06:58 | CP.PCM.PN ---
<Karis Desai Jeovanny - Last Filed: 05/16/18 15:52> Subjective - Date & Time of Evaluation Date of Evaluation: 05/16/18 Time of Evaluation: 07:15 - Subjective Subjective: PGY-1 Medicine Progress note for Dr. Verde Patient was seen and examined today at bedside in no acute distress. Nurse reports no overnight events. Patient tolerated surgery well, but is concerned about the dried clot underneath her bandage. She reports no discomfort where the Permacath is placed and knows she is for HD later this morning. Denies fever, chills, headache, chest pain, shortness of breath, abdominal pain. Her appetite has slowly returned, and she has had a BM and urinated since surgery. Objective - Vital Signs/Intake and Output Vital Signs (last 24 hours): Temp Pulse Resp BP Pulse Ox 97.8 F 69 20 96/58 L 100 05/16/18 04:52 05/16/18 04:52 05/16/18 04:52 05/16/18 04:52 05/16/18 04:52 Intake and Output: 05/15/18 05/16/18 18:59 06:59 Intake Total 410 Output Total 2 Balance 408 - Medications Medications: Current Medications Heparin Sodium (Porcine) (Heparin) 5,000 units SC Q12 [facility] Last Admin: 05/15/18 22:07 Dose: 5,000 units Hydromorphone HCl (Dilaudid) 0.5 mg IVP Q4H PRN PRN Reason: Pain, severe (8-10) Vancomycin HCl 1 gm/ Sodium (Chloride) 250 mls @ 167 [facility]ls[facility]; Protocol Piperacillin Sod/Tazobactam Sod (Zosyn 2.25 Gm Iv Premix) 2.25 gm in 50 mls @ 100 mls/hr IVPB Q8H [facility]; Protocol Last Admin: 05/16/18 01:00 Dose: 100 mls/hr Oxycodone/Acetaminophen (Percocet 5/325 Mg Tab) 1 tab PO Q6H PRN PRN Reason: Pain, moderate (4-7) Stop: 05/18/18 13:11 Last Admin: 05/15/18 22:08 Dose: 1 tab Pantoprazole Sodium (Protonix Ec Tab) 40 mg PO DAILY [facility] Last Admin: 05/15/18 11:54 Dose: 40 mg - Labs Labs: 05/15/18 11:25 05/15/18 11:25 PT 11.5 SECONDS (9.7-12.2) 05/14/18 11:25 INR 1.1 05/14/18 11:25 APTT 36 SECONDS (21-34) H 05/14/18 11:25 - Constitutional Appears: Non-toxic, No Acute Distress - Head Exam Head Exam: ATRAUMATIC, NORMOCEPHALIC - Eye Exam Eye Exam: EOMI, PERRL - ENT Exam ENT Exam: Normal Oropharynx - Respiratory Exam Respiratory Exam: Clear to Ausculation Bilateral, NORMAL BREATHING PATTERN. absent: Rales, Rhonchi, Wheezes - Cardiovascular Exam Cardiovascular Exam: REGULAR RHYTHM, +S1, +S2 - GI/Abdominal Exam GI & Abdominal Exam: Soft, Normal Bowel Sounds. absent: Tenderness - Extremities Exam Extremities Exam: absent: Joint Swelling, Tenderness Additional comments: R AVF site covered in post-op dressing c/d/i, nontender to palpation, nonerythematous, nonedematous L IJ Permacath in place - Neurological Exam Neurological Exam: Alert, Awake, CN II-XII Intact, Normal Gait, Oriented x3 - Psychiatric Exam Psychiatric exam: Normal Affect, Normal Mood - Skin Skin Exam: Dry, Intact, Normal Color, Warm Assessment and Plan - Assessment and Plan (Free Text) Assessment: 68yo F PMH ESRD on HD MWF for 15 years, HTN, DM2, asthma admitted for i nfected AVF. POD#2 R arm excision of infected fistula and stent, L IJ Permacath placement. Plan: Infected Nonfunctioning right AVF Cellulitis of the right upper arm wound cx - Staph Aureus blood cx negative x 48 hours Vas surgery consulted: Dr. Hernandez - 3: Left IJ permacath placement, right arm excision of infected fistula and stent - POD #2 Vancomycin 1gm IVPB MWF with HD (started 3) Zosyn 2.25g IVPB q8h (started 3) renally dosed hx of Bacteremia As per Dr. Light note, blood culture positive for staph aureus. Pt is s/p 3 doses of vancomycin 1g IVPB with dialysis last week wound cx - Staph Aureus Blood cx - negative x 48 hours Vanc/Zosyn as above Anemia, normocytic Hgb is 9.0 today Likely secondary to bleeding from the AVF Pt asymptomatic, no indication for transfusion at this time Continue to monitor ESRD on HD MWF - for HD later today - EPO 10,000u IV MWF - Nephro - Dr Chow - will follow up recs Hx of HTN Pt is hypotensive - continue to monitor Will hold home amlodipine at this time Lipid panel TGC 193, Chol 140, HDL 79, HDL 20 Hx of DM2 Accucheck ACHS ISS low F/u HgbA1c - 5.8 PPx: VTE: heparin Q12H, SCDS GI: Protonix Percocet PRN moderate pain, dilaudid 0.5mg IVP for severe pain d/w Dr. Mehreen Desai PGY-1 <Ryan Verde H - Last Filed: 05/16/18 18:01> Objective - Vital Signs/Intake and Output Vital Signs (last 24 hours): Temp Pulse Resp BP Pulse Ox 98.5 F 80 20 107/68 97 05/16/18 15:45 05/16/18 15:45 05/16/18 15:45 05/16/18 15:45 05/16/18 15:45 Intake and Output: 05/16/18 05/16/18 06:59 18:59 Intake Total 410 Output Total 2 Balance 408 - Medications Medications: Current Medications Epoetin Damien (Procrit) 10,000 unit IV [facility] Heparin Sodium (Porcine) (Heparin) 5,000 units SC Q12 [facility] Last Admin: 05/16/18 09:28 Dose: Not Given Hydromorphone HCl (Dilaudid) 0.5 mg IVP Q4H PRN PRN Reason: Pain, severe (8-10) Vancomycin HCl 1 gm/ Sodium (Chloride) 250 mls @ 167 mls/hr IVPB MWF [facility]; Protocol Last Admin: 05/16/18 12:56 Dose: 167 mls/hr Piperacillin Sod/Tazobactam Sod (Zosyn 2.25 Gm Iv Premix) 2.25 gm in 50 mls @ 100 mls/hr IVPB Q8H [facility]; Protocol Last Admin: 05/16/18 16:29 Dose: 100 mls/hr Oxycodone/Acetaminophen (Percocet 5/325 Mg Tab) 1 tab PO Q6H PRN PRN Reason: Pain, moderate (4-7) Stop: 05/18/18 13:11 Last Admin: 05/16/18 13:12 Dose: 1 tab Pantoprazole Sodium (Protonix Ec Tab) 40 mg PO DAILY [facility] Last Admin: 05/16/18 09:29 Dose: Not Given - Labs Labs: 05/16/18 09:40 05/16/18 09:40 PT 11.5 SECONDS (9.7-12.2) 05/14/18 11:25 INR 1.1 05/14/18 11:25 APTT 36 SECONDS (21-34) H 05/14/18 11:25 Attending/Attestation - Attestation I have personally seen and examined this patient.: Yes I have fully participated in the care of the patient.: Yes I have reviewed all pertinent clinical information, including history, physical exam and plan: Yes Notes (Text): 05/16/18 17:59 Medical attending: Patient was seen and examined by me. Reviewed the above note by the resident The patient has had two cultures positive for staph aureus. Currently remains on the IV abx at this time including vancomcyin during the HD [facility] Ryan Verde
[2018-05-16] MEDS: Pantoprazole 40 mg EC Tab PO SCH (09:29)
[2018-05-16 09:43] LABS: BASO # 0.1 K/uL (0.0-0.2); BASO % 1.2 % (0.0-2.0); EOS # 0.2 K/uL (0.0-0.7); EOS % 2.3 % (0.0-4.0); HEMOGLOBIN 8.6 g/dL (11.0-16.0); LYMPH # 1.8 K/uL (1.0-4.3); LYMPH % 23.2 % (20.0-40.0); MEAN CELL VOLUME 99.5 fL (81.0-99.0); MEAN CORPUSCULAR HEMOGLOBIN 33.5 pg (27.0-31.0); MEAN CORPUSCULAR HGB CONC 33.7 g/dL (33.0-37.0); MEAN PLATELET VOLUME 8.6 fL (7.2-11.7); MONO # 0.6 K/uL (0.0-0.8); MONO % 8.3 % (0.0-10.0); NRBC % 0.1 % (0.0-2.0); RBC 2.57 Mil/uL (3.80-5.20); RED CELL DISTRIBUTION WIDTH 17.2 % (11.5-14.5); WHITE BLOOD COUNT 7.7 K/uL (4.8-10.8)
[2018-05-16 10:58] LABS: ALB/GLOB RATIO 1.1 (1.0-2.1); ALBUMIN 3.5 g/dL (3.5-5.0); CALCIUM 9.8 mg/dl (8.6-10.4)
[2018-05-16] MEDS: Oxycodone/Acetaminophen 5/325 mg Tab PO PRN ×2 (13:12→21:09)
--- NOTE | 2018-05-16 13:59 | CP.PCM.PN ---
Subjective - Date & Time of Evaluation Date of Evaluation: 05/16/18 Time of Evaluation: 13:56 - Subjective Subjective: s/p dialysis now BP controlled still very weak no fevers +staph aureus wound culture- had + blood culture as outpt cath did not work well wounds followed by surgery Objective - Vital Signs/Intake and Output Vital Signs (last 24 hours): Temp Pulse Resp BP Pulse Ox 97.4 F L 72 16 104/62 99 05/16/18 12:05 05/16/18 09:30 05/16/18 12:05 05/16/18 12:05 05/16/18 12:05 Intake and Output: 05/16/18 05/16/18 06:59 18:59 Intake Total 410 Output Total 2 Balance 408 - Medications Medications: Current Medications Epoetin Damien (Procrit) 10,000 unit IV MWF [facility] Heparin Sodium (Porcine) (Heparin) 5,000 units SC Q12 [facility] Last Admin: 05/16/18 09:28 Dose: Not Given Hydromorphone HCl (Dilaudid) 0.5 mg IVP Q4H PRN PRN Reason: Pain, severe (8-10) Vancomycin HCl 1 gm/ Sodium (Chloride) 250 mls @ 167 mls/hr IVPB MWF [facility]; Protocol Last Admin: 05/16/18 12:56 Dose: 167 mls/hr Piperacillin Sod/Tazobactam Sod (Zosyn 2.25 Gm Iv Premix) 2.25 gm in 50 mls @ 100 mls/hr IVPB Q8H [facility]; Protocol Last Admin: 05/16/18 09:29 Dose: Not Given Oxycodone/Acetaminophen (Percocet 5/325 Mg Tab) 1 tab PO Q6H PRN PRN Reason: Pain, moderate (4-7) Stop: 05/18/18 13:11 Last Admin: 05/16/18 13:12 Dose: 1 tab Pantoprazole Sodium (Protonix Ec Tab) 40 mg PO DAILY [facility] Last Admin: 05/16/18 09:29 Dose: Not Given - Labs Labs: 05/16/18 09:40 05/16/18 09:40 PT 11.5 SECONDS (9.7-12.2) 05/14/18 11:25 INR 1.1 05/14/18 11:25 APTT 36 SECONDS (21-34) H 03/18/19 11:25 - Constitutional Appears: No Acute Distress, Chronically Ill - Head Exam Head Exam: ATRAUMATIC, NORMAL INSPECTION - Eye Exam Eye Exam: EOMI, Normal appearance - Neck Exam Neck Exam: Normal Inspection. absent: Tenderness - Respiratory Exam Respiratory Exam: Clear to Ausculation Bilateral, NORMAL BREATHING PATTERN - Cardiovascular Exam Cardiovascular Exam: REGULAR RHYTHM, +S1 - GI/Abdominal Exam GI & Abdominal Exam: Soft. absent: Tenderness - Extremities Exam Extremities Exam: Normal Inspection. absent: Tenderness - Neurological Exam Neurological Exam: Awake, CN II-XII Intact - Skin Skin Exam: Dry, Warm Assessment and Plan (1) Hypertensive chronic kidney disease with stage 5 chronic kidney disease or end stage renal disease Status: Acute (2) Failure of hemodialysis access Status: Acute (3) COPD (chronic obstructive pulmonary disease) Status: Acute (4) ESRD (end stage renal disease) Status: Acute (5) Abscess Status: Acute - Assessment and Plan (Free Text) Plan: dialysis MWF Add TPA to IJ cath Add EPO IV ABs Wound care
[2018-05-16 17:45] VITALS: RESP 20
--- NOTE | 2018-05-16 22:52 | CARD ---
APPROVED REPORT Date of service: 05/14/2018 EKG Measurement Heart [id number] <Conclusion> Normal sinus rhythm Prolonged QT Abnormal ECG
[2018-05-17] MEDS: Piperacill/Tazo 2.25gm in Dex 2.25 GM/50 ML BAG IVPB SCH ×4 (01:20→18:00)
--- NOTE | 2018-05-17 09:02 | CP.PCM.PN ---
<Vik Mead - Last Filed: 05/17/18 17:16> Subjective - Date & Time of Evaluation Date of Evaluation: 05/17/18 Time of Evaluation: 09:00 - Subjective Subjective: PGY-[address] Ryan Verde service Patient is seen and examiend at bedside. Patient continues to have pain on the side where portacath was inserted on pt's chest. Patient wants portacath to be removed. Patient has mild cough. Patient denies any other complaints at this time. denies fever, chills, chest pain, sob, n/v/d/c or urinary complaints, patient is tolerating diet and ambulating. no reports of bleeding from avf area. Objective - Vital Signs/Intake and Output Vital Signs (last 24 hours): Temp Pulse Resp BP Pulse Ox 98.1 F 82 20 108/56 L 96 05/17/18 07:25 05/17/18 07:25 05/17/18 07:25 05/17/18 07:25 05/17/18 07:25 - Medications Medications: Current Medications Epoetin Damien (Procrit) 10,000 unit IV MWF [facility] Heparin Sodium (Porcine) (Heparin) 5,000 units SC Q12 [facility] Last Admin: 05/16/18 21:09 Dose: 5,000 units Hydromorphone HCl (Dilaudid) 0.5 mg IVP Q4H PRN PRN Reason: Pain, severe (8-10) Vancomycin HCl 1 gm/ Sodium (Chloride) 250 mls @ 167 mls/hr IVPB [facility]; Protocol Last Admin: 05/16/18 12:56 Dose: 167 mls/hr Piperacillin Sod/Tazobactam Sod (Zosyn 2.25 Gm Iv Premix) 2.25 gm in 50 mls @ 100 mls/hr IVPB Q8H [facility]; Protocol Last Admin: 05/17/18 01:20 Dose: 100 mls/hr Oxycodone/Acetaminophen (Percocet 5/325 Mg Tab) 1 tab PO Q6H PRN PRN Reason: Pain, moderate (4-7) Stop: 05/18/18 13:11 Last Admin: 05/16/18 21:09 Dose: 1 tab Pantoprazole Sodium (Protonix Ec Tab) 40 mg PO DAILY [facility] Last Admin: 05/16/18 09:29 Dose: Not Given - Labs Labs: 05/16/18 09:40 05/16/18 09:40 PT 11.5 SECONDS (9.7-12.2) 05/14/18 11:25 INR 1.1 05/14/18 11:25 APTT 36 SECONDS (21-34) H 05/14/18 11:25 - Constitutional Appears: Non-toxic, No Acute Distress - Head Exam Head Exam: ATRAUMATIC, NORMAL INSPECTION, NORMOCEPHALIC - Eye Exam Eye Exam: EOMI, Normal appearance - Respiratory Exam Respiratory Exam: Decreased Breath Sounds, NORMAL BREATHING PATTERN. absent: Chest Wall Tenderness, Rales, Rhonchi, Wheezes, Respiratory Distress - Cardiovascular Exam Cardiovascular Exam: REGULAR RHYTHM, +S1, +S2 - GI/Abdominal Exam GI & Abdominal Exam: Soft, Normal Bowel Sounds. absent: Distended, Guarding, Tenderness - Extremities Exam Additional comments: R AVF site covered in post-op dressing, clean/dry/intact, nontender to palpation L IJ Permacath in place, tender to palpation, no erythema, no discharge or blood noted. - Back Exam Back Exam: NORMAL INSPECTION - Neurological Exam Neurological Exam: Alert, Awake, Normal Gait, Oriented x3 - Psychiatric Exam Psychiatric exam: Normal Affect, Normal Mood - Skin Skin Exam: Dry, Normal Color, Warm Assessment and Plan - Assessment and Plan (Free Text) Assessment: 68yo F PMH ESRD on HD MWF for 15 years, HTN, DM2, asthma admitted for infected AVF. POD#3 R arm excision of infected fistula and stent, L IJ Permacath placement. Plan: Infected Nonfunctioning right AVF Cellulitis of the right upper arm wound cx - Staph Aureus blood cx negative x 3 days Vasc surgery consulted: Dr. Hernandez - 3: Left IJ permacath placement, right arm excision of infected fistula and stent - POD #3 - will follow up with [facility] sx in term of jail plans or reconstruct fistula or place new fistula. continue Vancomycin 1gm IVPB MWF with HD (started 05/16) continue Zosyn 2.25g IVPB q8h (started 05/14) renally dosed hx of Bacteremia As per Dr. Light note, blood culture positive for staph aureus. Pt is s/p 3 doses of vancomycin 1g IVPB with dialysis last week wound cx - Staph Aureus Blood cx - negative x 3 days WBC 10.8, pt is afebrile Vanc/Zosyn as above Anemia, normocytic Hgb is 9.8, improving Likely secondary to bleeding from the AVF Pt asymptomatic, no indication for transfusion at this time Continue to monitor Coughing r/o fluid overload - Chest xray - no active pulmonary disease, no pleural effusions noted. - continue to monitor ESRD on HD MWF - EPO 10,000u IV [facility] - Nephro - Dr Chow - will follow up recs Hx of HTN Pt is hypotensive - continue to monitor Will hold home amlodipine at this time Lipid panel TGC 193, Chol 140, HDL 79, HDL 20 Hx of DM2 Accucheck ACHS ISS low F/u HgbA1c - 5.8 PPx: VTE: heparin Q12H, SCDS GI: Protonix Percocet PRN changed from Q6 to Q4 for moderate pain Plan discussed with Dr Mehreen Mead, PGY-1 <Ryan Verde - Last Filed: 05/17/18 19:11> Objective - Vital Signs/Intake and Output Vital Signs (last 24 hours): Temp Pulse Resp BP Pulse Ox 98.1 F 84 20 97/52 L 96 05/17/18 15:00 05/17/18 15:00 05/17/18 15:00 05/17/18 15:00 05/17/18 15:00 - Medications Medications: Current Medications Epoetin Damien (Procrit) 10,000 unit IV [facility] Heparin Sodium (Porcine) (Heparin) 5,000 units SC Q12 [facility] Last Admin: 05/17/18 11:36 Dose: 5,000 units Hydromorphone HCl (Dilaudid) 0.5 mg IVP Q4H PRN PRN Reason: Pain, severe (8-10) Vancomycin HCl 1 gm/ Sodium (Chloride) 250 mls @ 167 mls[facility]hr [facility]; Protocol Last Admin: 05/16/18 12:56 Dose: 167 mls/hr Piperacillin Sod/Tazobactam Sod (Zosyn 2.25 Gm Iv Premix) 2.25 gm in 50 mls @ 100 mls/hr IVPB Q8H [facility]; Protocol Last Admin: 05/17/18 17:00 Dose: 100 mls/hr Oxycodone/Acetaminophen (Percocet 5/325 Mg Tab) 1 tab PO Q4H PRN PRN Reason: Pain, moderate (4-7) Stop: 05/18/18 13:11 Last Admin: 05/17/18 11:44 Dose: 1 tab Pantoprazole Sodium (Protonix Ec Tab) 40 mg PO DAILY [facility] Last Admin: 05/17/18 11:36 Dose: 40 mg - Labs Labs: 05/17/18 11:37 05/17/18 11:37 PT 11.5 SECONDS (9.7-12.2) 05/14/18 11:25 INR 1.1 05/14/18 11:25 APTT 36 SECONDS (21-34) H 05/14/18 11:25 Attending/Attestation - Attestation I have personally seen and examined this patient.: Yes I have fully participated in the care of the patient.: Yes I have reviewed all pertinent clinical information, including history, physical exam and plan: Yes Notes (Text): 05/17/18 19:08 Medical attending: Patient was seen and examined by me. Agree with the above note by the resident The patient was not in any acute distress when I came and saw her with the medical office receptionist assistant Her son was present at bedside and patient was ok with family present during discussion The patient is being continued on IV abx for the time being, the cultures were positive for staph aureus. In the mean time she is getting HD via the permacath She also asked for more pain medication and so we made the percocet more frequent Ryan Verde
--- NOTE | 2018-05-17 09:47 | CP.PCM.PN ---
Subjective - Date & Time of Evaluation Date of Evaluation: 05/17/18 Time of Evaluation: 09:44 - Subjective Subjective: feels better still weak Hg lower post surgery wounds addressed by surgery repeat dialysis for AM- TPA was used in poorly functional IJ cath Objective - Vital Signs/Intake and Output Vital Signs (last 24 hours): Temp Pulse Resp BP Pulse Ox 98.1 F 82 20 108/56 L 96 05/17/18 07:25 05/17/18 07:25 05/17/18 07:25 05/17/18 07:25 05/17/18 07:25 - Medications Medications: Current Medications Epoetin Damien (Procrit) 10,000 unit IV MWF [facility] Heparin Sodium (Porcine) (Heparin) 5,000 units SC Q12 [facility] Last Admin: 05/16/18 21:09 Dose: 5,000 units Hydromorphone HCl (Dilaudid) 0.5 mg IVP Q4H PRN PRN Reason: Pain, severe (8-10) Vancomycin HCl 1 gm/ Sodium (Chloride) 250 mls @ 167 mls/hr IVPB MWF [facility]; Protocol Last Admin: 05/16/18 12:56 Dose: 167 mls/hr Piperacillin Sod/Tazobactam Sod (Zosyn 2.25 Gm Iv Premix) 2.25 gm in 50 mls @ 100 mls/hr IVPB Q8H [facility]; Protocol Last Admin: 05/17/18 01:20 Dose: 100 mls/hr Oxycodone/Acetaminophen (Percocet 5/325 Mg Tab) 1 tab PO Q6H PRN PRN Reason: Pain, moderate (4-7) Stop: 05/18/18 13:11 Last Admin: 05/16/18 21:09 Dose: 1 tab Pantoprazole Sodium (Protonix Ec Tab) 40 mg PO DAILY [facility] Last Admin: 05/16/18 09:29 Dose: Not Given - Labs Labs: 05/16/18 09:40 05/16/18 09:40 PT 11.5 SECONDS (9.7-12.2) 05/14/18 11:25 INR 1.1 05/14/18 11:25 APTT 36 SECONDS (21-34) H 05/14/18 11:25 - Constitutional Appears: No Acute Distress, Chronically Ill - Head Exam Head Exam: ATRAUMATIC, NORMAL INSPECTION - Eye Exam Eye Exam: EOMI, Normal appearance - Neck Exam Neck Exam: Normal Inspection. absent: Tenderness - Respiratory Exam Respiratory Exam: Clear to Ausculation Bilateral, NORMAL BREATHING PATTERN - Cardiovascular Exam Cardiovascular Exam: REGULAR RHYTHM, +S1 - GI/Abdominal Exam GI & Abdominal Exam: Soft. absent: Tenderness - Extremities Exam Extremities Exam: Normal Inspection. absent: Tenderness - Neurological Exam Neurological Exam: Awake, CN II-XII Intact - Skin Skin Exam: Dry, Warm Assessment and Plan (1) Hypertensive chronic kidney disease with stage 5 chronic kidney disease or end stage renal disease Status: Acute (2) Failure of hemodialysis access Status: Acute (3) COPD (chronic obstructive pulmonary disease) Status: Acute (4) ESRD (end stage renal disease) Status: Acute (5) Abscess Status: Acute - Assessment and Plan (Free Text) Plan: dialysis in AM, MWF IV ABs for bacteremia Use IJ cath at dialysis- monitor flows on ESAs check iron stores Wound care
[2018-05-17] MEDS: Pantoprazole 40 mg EC Tab PO SCH (11:36)
[2018-05-17] MEDS: Oxycodone/Acetaminophen 5/325 mg Tab PO PRN ×2 (11:44→21:51)
[2018-05-17 12:01] LABS: BASO # 0.1 K/uL (0.0-0.2); BASO % 0.7 % (0.0-2.0); EOS # 0.2 K/uL (0.0-0.7); EOS % 1.7 % (0.0-4.0); HEMOGLOBIN 9.4 g/dL (11.0-16.0); LYMPH # 1.7 K/uL (1.0-4.3); LYMPH % 15.3 % (20.0-40.0); MEAN CELL VOLUME 100.1 fL (81.0-99.0); MEAN CORPUSCULAR HEMOGLOBIN 32.6 pg (27.0-31.0); MEAN CORPUSCULAR HGB CONC 32.6 g/dL (33.0-37.0); MEAN PLATELET VOLUME 8.7 fL (7.2-11.7); MONO # 0.7 K/uL (0.0-0.8); MONO % 6.3 % (0.0-10.0); NEUT # 8.2 K/uL (1.8-7.0); RBC 2.87 Mil/uL (3.80-5.20); RED CELL DISTRIBUTION WIDTH 17.3 % (11.5-14.5); WHITE BLOOD COUNT 10.8 K/uL (4.8-10.8)
[2018-05-17 12:15] LABS: ALB/GLOB RATIO 1.1 (1.0-2.1); ALBUMIN 3.9 g/dL (3.5-5.0); CALCIUM 9.6 mg/dl (8.6-10.4)
--- NOTE | 2018-05-17 17:06 | RAD ---
Date of service: 05/17/2018 HISTORY: Cough. COMPARISON: 05/14/2018 TECHNIQUE: Chest PA and lateral FINDINGS: LUNGS: No active pulmonary disease. PLEURA: No significant pleural effusion identified. No pneumothorax apparent. CARDIOVASCULAR: Atherosclerotic calcifications identified primarily aortic arch. Cardiomegaly. No evidence of acute, significant cardiovascular disease. Venous access catheter in stable, satisfactory position. OSSEOUS STRUCTURES: No significant abnormalities. VISUALIZED UPPER ABDOMEN: Normal. OTHER FINDINGS: None. IMPRESSION: No active disease. No significant interval change compared to the prior examination(s).
[2018-05-18] MEDS: Piperacill/Tazo 2.25gm in Dex 2.25 GM/50 ML BAG IVPB SCH ×2 (00:55→09:44)
[2018-05-18] MEDS ORDERED: Epoetin Alfa 10,000 unit/ml Dialysis IV SCH (09:00)
--- NOTE | 2018-05-18 09:25 | CP.PCM.PN ---
Objective - Vital Signs/Intake and Output Vital Signs (last 24 hours): Temp Pulse Resp BP Pulse Ox 98.1 F 70 20 94/55 L 95 05/18/18 07:07 05/18/18 07:07 05/18/18 07:07 05/18/18 07:07 05/18/18 07:07 - Medications Medications: Current Medications Epoetin Damien (Procrit) 10,[address] [facility] Heparin Sodium (Porcine) (Heparin) 5,[address] [facility] Last Admin: 05/17/18 21:51 Dose: 5,000 units Hydromorphone HCl (Dilaudid) 0.5 mg IVP Q4H PRN PRN Reason: Pain, severe (8-10) Vancomycin HCl 1 gm/ Sodium (Chloride) 250 mls @ 167 mls/hr IVPB MWF [facility]; Protocol Last Admin: 05/16/18 12:56 Dose: 167 mls/hr Piperacillin Sod/Tazobactam Sod (Zosyn 2.25 Gm Iv Premix) 2.25 gm in 50 mls @ 100 mls/hr IVPB Q8H [facility]; Protocol Last Admin: 05/18/18 00:55 Dose: 100 mls/hr Oxycodone/Acetaminophen (Percocet 5/325 Mg Tab) 1 tab PO Q4H PRN PRN Reason: Pain, moderate (4-7) Stop: 05/18/18 13:11 Last Admin: 05/17/18 21:51 Dose: 1 tab Pantoprazole Sodium (Protonix Ec Tab) [address] [facility] Last Admin: 05/17/18 11:36 Dose: 40 mg - Labs Labs: 05/17/18 11:37 05/17/18 11:37 PT 11.5 SECONDS (9.7-12.2) 05/14/18 11:25 INR 1.1 05/14/18 11:25 APTT 36 SECONDS (21-34) H 05/14/18 11:25
[2018-05-18 09:36] LABS: BASO # 0.1 K/uL (0.0-0.2); BASO % 0.8 % (0.0-2.0); EOS # 0.2 K/uL (0.0-0.7); EOS % 2.8 % (0.0-4.0); HEMOGLOBIN 8.5 g/dL (11.0-16.0); LYMPH # 1.9 K/uL (1.0-4.3); LYMPH % 24.6 % (20.0-40.0); MEAN CELL VOLUME 98.8 fL (81.0-99.0); MEAN CORPUSCULAR HEMOGLOBIN 32.9 pg (27.0-31.0); MEAN CORPUSCULAR HGB CONC 33.3 g/dL (33.0-37.0); MEAN PLATELET VOLUME 8.4 fL (7.2-11.7); MONO # 0.5 K/uL (0.0-0.8); MONO % 6.3 % (0.0-10.0); NEUT # 5.2 K/uL (1.8-7.0); NEUT % 65.5 % (50.0-75.0); RBC 2.58 Mil/uL (3.80-5.20); RED CELL DISTRIBUTION WIDTH 16.7 % (11.5-14.5); WHITE BLOOD COUNT 7.9 K/uL (4.8-10.8)
[2018-05-18 10:06] LABS: ALBUMIN 3.7 g/dL (3.5-5.0); CALCIUM 9.6 mg/dl (8.6-10.4)
[2018-05-18] MEDS: Pantoprazole 40 mg EC Tab PO SCH (11:30)
[2018-05-18 12:05] VITALS: BP 102/63; PULSE 75; TEMP 97.3; O2SAT 97
--- NOTE | 2018-05-18 14:12 | CP.PCM.PN ---
Subjective - Date & Time of Evaluation Date of Evaluation: 05/18/18 Time of Evaluation: 14:09 - Subjective Subjective: s/p dialysis now- UF 2000ml afebrile on vanco for staph aureus bacteremia ferritin elevated- cannot give IV Fe feels better Objective - Vital Signs/Intake and Output Vital Signs (last 24 hours): Temp Pulse Resp BP Pulse Ox 97.3 F L 75 20 102/63 97 05/18/18 12:05 05/18/18 12:05 05/18/18 12:05 05/18/18 12:05 05/18/18 12:05 - Medications Medications: Current Medications Epoetin Damien (Procrit) 10,000 unit IV MWF [facility] Last Admin: 05/18/18 11:33 Dose: 10,000 unit Heparin Sodium (Porcine) (Heparin) 5,000 units SC Q12 [facility] Last Admin: 05/18/18 09:44 Dose: Not Given Hydromorphone HCl (Dilaudid) 0.5 mg IVP Q4H PRN PRN Reason: Pain, severe (8-10) Vancomycin HCl 1 gm/ Sodium (Chloride) 250 mls @ 167 mls/hr IVPB MWF [facility]; Protocol Last Admin: 05/18/18 13:52 Dose: 167 mls/hr Piperacillin Sod/Tazobactam Sod (Zosyn 2.25 Gm Iv Premix) 2.25 gm in 50 mls @ 100 mls/hr IVPB Q8H [facility]; Protocol Last Admin: 05/18/18 09:44 Dose: Not Given Pantoprazole Sodium (Protonix Ec Tab) 40 mg PO DAILY [facility] Last Admin: 05/18/18 11:30 Dose: Not Given - Labs Labs: 05/18/18 09:30 05/18/18 09:30 PT 11.5 SECONDS (9.7-12.2) 05/14/18 11:25 INR 1.1 05/14/18 11:25 APTT 36 SECONDS (21-34) H 05/14/18 11:25 - Constitutional Appears: No Acute Distress, Chronically Ill - Head Exam Head Exam: ATRAUMATIC, NORMAL INSPECTION - Eye Exam Eye Exam: EOMI, Normal appearance - Neck Exam Neck Exam: Normal Inspection. absent: Tenderness - Respiratory Exam Respiratory Exam: Clear to Ausculation Bilateral, NORMAL BREATHING PATTERN - Cardiovascular Exam Cardiovascular Exam: REGULAR RHYTHM, +S1 - GI/Abdominal Exam GI & Abdominal Exam: Soft. absent: Tenderness - Extremities Exam Extremities Exam: Normal Inspection. absent: Tenderness - Neurological Exam Neurological Exam: Awake, CN II-XII Intact - Skin Skin Exam: Dry, Warm Assessment and Plan (1) Hypertensive chronic kidney disease with stage 5 chronic kidney disease or end stage renal disease Status: Acute (2) Failure of hemodialysis access Status: Acute (3) COPD (chronic obstructive pulmonary disease) Status: Acute (4) ESRD (end stage renal disease) Status: Acute (5) Abscess Status: Acute - Assessment and Plan (Free Text) Plan: continue IV ABs same MWF dialysis use permcath for now ESAs for anemia
--- NOTE | 2018-05-18 15:17 | CP.PCM.DIS ---
<Vik Mead - Last Filed: 05/18/18 18:36> Provider - Provider Date of Admission: 05/16/18 11:52 Attending physician: Ryan Verde DO Consults: 05/14/18 18:27 Physician Consult Routine Comment: Consulting Provider: Javon Hernandez Jr. Consulting Physician: Javon Hernandez Jr. Reason for Consult: infected fistula Time Spent in preparation of Discharge (in minutes): 180 Diagnosis - Discharge Diagnosis (1) AV shunt malfunction Status: Chronic Hospital Course - Lab Results Lab Results: Micro Results 05/14/18 12:25 Blood Blood Culture - Preliminary NO GROWTH AFTER 4 DAYS 05/14/18 11:25 Blood Blood Culture - Preliminary NO GROWTH AFTER 4 DAYS 05/15/18 06:21 Urine,Clean Catch Urine Culture - Final No Growth (<1,000 CFU/ML) 05/14/18 18:39 Other: Please Indicate Gram Stain - Final 05/14/18 18:39 Other: Please Indicate Wound Culture - Final Staphylococcus Aureus 05/14/18 12:47 Arm - Right Gram Stain - Final 05/14/18 12:47 Arm - Right Wound Culture - Final Staphylococcus Aureus Most Recent Lab Values WBC 7.9 K/uL (4.8-10.8) 05/18/18 09:30 RBC 2.58 Mil/uL (3.80-5.20) L 05/18/18 09:30 Hgb 8.5 g/dL (11.0-16.0) L 05/18/18 09:30 Hct 25.4 % (34.0-47.0) L 05/18/18 09:30 MCV 98.8 fL (81.0-99.0) 05/18/18 09:30 MCH 32.9 pg (27.0-31.0) H 05/18/18 09:30 MCHC 33.3 g/dL (33.0-37.0) 05/18/18 09:30 RDW 16.7 % (11.5-14.5) H 05/18/18 09:30 Plt Count 265 K/uL (130-400) 05/18/18 09:30 MPV 8.4 fL (7.2-11.7) 05/18/18 09:30 Neut % (Auto) 65.5 % (50.0-75.0) 05/18/18 09:30 Lymph % (Auto) 24.6 % (20.0-40.0) 05/18/18 09:30 Payne % (Auto) 6.3 % (0.0-10.0) 05/18/18 09:30 Eos % (Auto) 2.8 % (0.0-4.0) 05/18/18 09:30 Baso % (Auto) 0.8 % (0.0-2.0) 05/18/18 09:30 Neut # (Auto) 5.2 K/uL (1.8-7.0) 05/18/18 09:30 Lymph # (Auto) 1.9 K/uL (1.0-4.3) 05/18/18 09:30 Payne # (Auto) 0.5 K/uL (0.0-0.8) 05/18/18 09:30 Eos # (Auto) 0.2 K/uL (0.0-0.7) 05/18/18 09:30 Baso # (Auto) 0.1 K/uL (0.0-0.2) 05/18/18 09:30 PT 11.5 SECONDS (9.7-12.2) 05/14/18 11:25 INR 1.1 05/14/18 11:25 APTT 36 SECONDS (21-34) H 05/14/18 11:25 pO2 28 mm/Hg (30-55) L 05/14/18 14:10 VBG pH 7.45 (7.32-7.43) H 05/14/18 14:10 VBG pCO2 46 mmHg (40-60) 05/14/18 14:10 VBG HCO3 29.2 mmol/L 05/14/18 14:10 VBG Total CO2 33.4 mmol/L (22-28) H 05/14/18 14:10 VBG O2 Sat (Calc) 54.5 % (40-65) 05/14/18 14:10 VBG Base Excess 6.9 mmol/L (0.0-2.0) H 05/14/18 14:10 VBG Potassium 4.3 mmol/L (3.6-5.2) 05/14/18 14:10 Sodium 138.0 mmol/l (132-148) 05/14/18 14:10 Chloride 102.0 mmol/L (98-107) 05/14/18 14:10 Glucose 84 mg/dl (65-105) 05/14/18 14:10 Lactate 1.5 mmol/L (0.7-2.1) 05/14/18 14:10 Sodium 134 mmol/L (132-148) 05/18/18 09:30 Potassium 3.8 mmol/L (3.6-5.2) 05/18/18 09:30 Chloride 95 mmol/L (98-107) L 05/18/18 09:30 Carbon Dioxide 26 mmol/L (22-30) 05/18/18 09:30 Anion Gap 17 (10-20) 05/18/18 09:30 BUN 30 mg/dL (7-17) H 05/18/18 09:30 Creatinine 8.7 mg/dL (0.7-1.2) H* D 05/18/18 09:30 Est GFR ( Amer) 5 05/18/18 09:30 Est GFR (Non-Af Amer) 5 05/18/18 09:30 POC Glucose (mg/dL) 140 mg/dL (65-110) H 05/18/18 11:07 Random Glucose 112 mg/dL (65-105) H D 05/18/18 09:30 Hemoglobin A1c 5.8 % (4.2-6.5) 05/15/18 11:25 Calcium 9.6 mg/dl (8.6-10.4) 05/18/18 09:30 Phosphorus 7.7 mg/dL (2.5-4.5) H 05/18/18 09:30 Magnesium 1.8 mg/dL (1.6-2.3) 05/18/18 09:30 % Saturation 25 (20-55) 05/18/18 09:30 Ferritin 1870.0 ng/mL 05/18/18 09:30 Total Bilirubin 0.5 mg/dL (0.2-1.3) 05/18/18 09:30 AST 38 U/L (14-36) H D 05/18/18 09:30 ALT 18 U/L (9-52) 05/18/18 09:30 Alkaline Phosphatase 107 U/L (38-126) 05/18/18 09:30 Total Protein 7.2 g/dL (6.3-8.3) 05/18/18 09:30 Albumin 3.7 g/dL (3.5-5.0) 05/18/18 09:30 Globulin 3.6 gm/dL (2.2-3.9) 05/18/18 09:30 Albumin/Globulin Ratio 1.0 (1.0-2.1) 05/18/18 09:30 Triglycerides 193 mg/dL (0-149) H 05/15/18 11:25 Cholesterol 140 mg/dL (0-199) 05/15/18 11:25 LDL Cholesterol Direct 79 mg/dL (0-129) 05/15/18 11:25 HDL Cholesterol 20 mg/dL (30-70) L 05/15/18 11:25 Venous Blood Potassium 4.3 mmol/L (3.6-5.2) 05/14/18 14:10 Urine Color Yellow (YELLOW) 05/15/18 06:21 Urine Clarity Hazy (Clear) 05/15/18 06:21 Urine pH 8.0 (5.0-8.0) 05/15/18 06:21 Ur Specific Mio 1.009 (1.003-1.030) 05/15/18 06:21 Urine Protein 1+ mg/dL (NEGATIVE) H 05/15/18 06:21 Urine Glucose (UA) Normal mg/dL (Normal) 05/15/18 06:21 Urine Ketones Negative mg/dL (NEGATIVE) 05/15/18 06:21 Urine Blood Negative (NEGATIVE) 05/15/18 06:21 Urine Nitrate Negative (NEGATIVE) 05/15/18 06:21 Urine Bilirubin Negative (NEGATIVE) 05/15/18 06:21 Urine Urobilinogen Normal mg/dL (0.2-1.0) 05/15/18 06:21 Ur Leukocyte Esterase Trace Natalia/uL (Negative) 05/15/18 06:21 Urine WBC (Auto) 6 /hpf (0-5) H 05/15/18 06:21 Urine RBC (Auto) 2 /hpf (0-3) 05/15/18 06:21 Ur Squamous Epith Cells 49 /hpf (0-5) H 05/15/18 06:21 Urine Bacteria Occ (<OCC) H 05/15/18 06:21 Hep Bs Antigen Negative (NEGATIVE) 05/16/18 11:24 - Hospital Course Hospital Course: On admission: This is a 68 year old Algerian speaking female with PMHx of ESRD on HD for 15 years, HTN, DM2, asthma who presents with worsening swelling, erythema, pain to her right AV fistula site for the past 1 week. Endorses waking up this morning with blood covered sheets from the right AVF site. Pt admits to intermittent chills, denies fevers. Denies chest pain, sob, cough, abdominal pain, n/v/d, hematochezia, melena. On hospitalization: Admitted for evaluation and treatment of malfunction AVF and bacteremia. As per Dr Light, patient had previous positive blood culture for staph aureus and has received 3 doses of vanc in dialysis. Patient started on IV Vanc during MWF dialysis session, and IV Zosyn which was renally dosed. Dr Hernandez, Vasc surgeon, was consulted, performed Left IJ permacath placement, right arm excision of infected fistula and stent. Wound cx positive for staph aureus, blood cx negative. Nephro Dr Light consulted for this admission, patient continued dialysis via permacath, patient experienced tenderness in area of insertion,percocet and dilaudid PRN. DVT ppx with heparin sc and scds, GI ppx with protonix. On discharge: The following instruction were given to patient before discharge: Patient is stable for discharge as per Dr Verde. Patient to continue her HD sessions on Monday, Monday and Monday at patient's dialysis center. Patient will continue receiving IV antibiotics during dialysis for two more weeks as per Ex Chef Dr Light. Patient to start taking the following oral antibiotic: ciprofloxacin one tablet twice a day for 7 days, dispense #14 tablets. . Patient can take OTC pain medication such as tylenol every 6 hours for pain from catheter insertion site. Patient needs to follow up with Dr Hernandez in one-two weeks for plans in terms of Av fistula on left arm for dialysis. Patient can change dressing from left arm, keep area clean at all times. Patient is to follow up with primary medical doctor Ran in 5-7 days after discharge from hospital. If symptoms worsen or recur, please return to the ER This is a brief summary of patient's hospitalization course. For more information, please refer to patient's EMR. - Date & Time of H&P Date of H&P: 05/14/18 Time of H&P: 13:16 Discharge Exam - Head Exam Head Exam: ATRAUMATIC, NORMAL INSPECTION - Eye Exam Eye Exam: EOMI, Normal appearance - Neck Exam Neck exam: Normal Inspection - Respiratory Exam Respiratory Exam: Clear to PA & Lateral, UNREMARKABLE - Cardiovascular Exam Cardiovascular Exam: REGULAR RHYTHM, +S1, +S2 - GI/Abdominal Exam GI & Abdominal Exam: Normal Bowel Sounds, Unremarkable - Extremities Exam Extremities exam: full ROM Additional comments: dressing in anterior right arm - Neurological Exam Neurological exam: Alert, Oriented x3 - Psychiatric Exam Psychiatric exam: Normal Affect, Normal Mood - Skin Skin Exam: Dry, Normal Color, Warm Discharge Plan - Discharge Medications Prescriptions: Ciprofloxacin HCl [Cipro] 250 mg PO BID 7 Days #14 tablet Vancomycin [Vancomycin Inj] 1 gm IV MWF 14 Days vial - Follow Up Plan Condition: GUARDED Disposition: HOME/ ROUTINE Instructions: Ciprofloxacin (Systemic), Dialysis Diet , High Blood Pressure (DC), End Stage Kidney Disease (DC), Dialysis Catheter (DC) Additional Instructions: Patient is stable for discharge as per Dr Verde Patient to continue her HD sessions on Monday, Monday and Monday at patient's dialysis center. Patient will continue receiving IV antibiotics during dialysis for two more weeks as per Ex Chef Dr Light Patient to start taking the following oral antibiotic: ciprofloxacin one tablet twice a day for 7 days, dispense #14 tablets. Patient can take OTC pain medication such as tylenol every 6 hours for pain from catheter insertion site. Patient needs to follow up with Dr Hernandez in two weeks for plans in terms of Av fistula on left arm for dialysis. Patient can change dressing from left arm, keep area clean at all times. Patient is to follow up with primary medical doctor Ran in 5-7 days after discharge from hospital. If symptoms worsen or recur, please return to the ER El paciente es estable para el naomi segn Dr Verde El paciente continuar ciarra sesiones de HD el lunes, mircoles y viernes en el centro de dilisis del paciente. El paciente continuar recibiendo antibiticos por va intravenosa stevenson la dilisis stevenson dos semanas ms de acuerdo con el nefrlogo Dr Light El paciente debe comenzar a laila el siguiente antibitico oral: ciprofloxacina casey tableta dos veces al da stevenson 7 snyder, dispensar las tabletas # 14. El paciente puede laila medicamentos OTC para el dolor, pam tylenol, cada 6 horas para el dolor en el lugar de insercin del catter. El paciente debe hacer un seguimiento con el Dr. Hernandez en dos semanas para los planes en trminos de fstula Av en el brazo linda para dilisis. El paciente puede cambiar el apsito del brazo linda, mantener el edmund limpia en todo momento. El paciente debe realizar un seguimiento con el kenyetta de cabecera Tong en 5- 7 snyder despus del naomi hospitalaria. Si los sntomas empeoran o reaparecen, vuelva a la valdemar de emergencias. Referrals: Nimesh Light MD [Staff Provider] - Javon Hernandez Jr., MD [Staff Provider] - <Ryan Verde - Last Filed: 05/19/18 08:29> Provider - Provider Date of Admission: 05/16/18 11:52 Attending physician: Ryan Verde DO Consults: 05/14/18 18:27 Physician Consult Routine Comment: Consulting Provider: Javon Hernandez Jr. Consulting Physician: Javon Hernandez Jr. Reason for Consult: infected fistula Hospital Course - Lab Results Lab Results: Micro Results 05/14/18 12:25 Blood Blood Culture - Preliminary NO GROWTH AFTER 4 DAYS 05/14/18 11:25 Blood Blood Culture - Preliminary NO GROWTH AFTER 4 DAYS 05/15/18 06:21 Urine,Clean Catch Urine Culture - Final No Growth (<1,000 CFU/ML) 05/14/18 18:39 Other: Please Indicate Gram Stain - Final 05/14/18 18:39 Other: Please Indicate Wound Culture - Final Staphylococcus Aureus 05/14/18 12:47 Arm - Right Gram Stain - Final 05/14/18 12:47 Arm - Right Wound Culture - Final Staphylococcus Aureus Most Recent Lab Values WBC 7.9 K/uL (4.8-10.8) 05/18/18 09:30 RBC 2.58 Mil/uL (3.80-5.20) L 05/18/18 09:30 Hgb 8.5 g/dL (11.0-16.0) L 05/18/18 09:30 Hct 25.4 % (34.0-47.0) L 05/18/18 09:30 MCV 98.8 fL (81.0-99.0) 05/18/18 09:30 MCH 32.9 pg (27.0-31.0) H 05/18/18 09:30 MCHC 33.3 g/dL (33.0-37.0) 05/18/18 09:30 RDW 16.7 % (11.5-14.5) H 05/18/18 09:30 Plt Count 265 K/uL (130-400) 05/18/18 09:30 MPV 8.4 fL (7.2-11.7) 05/18/18 09:30 Neut % (Auto) 65.5 % (50.0-75.0) 05/18/18 09:30 Lymph % (Auto) 24.6 % (20.0-40.0) 05/18/18 09:30 Payne % (Auto) 6.3 % (0.0-10.0) 05/18/18 09:30 Eos % (Auto) 2.8 % (0.0-4.0) 05/18/18 09:30 Baso % (Auto) 0.8 % (0.0-2.0) 05/18/18 09:30 Neut # (Auto) 5.2 K/uL (1.8-7.0) 05/18/18 09:30 Lymph # (Auto) 1.9 K/uL (1.0-4.3) 05/18/18 09:30 Payne # (Auto) 0.5 K/uL (0.0-0.8) 05/18/18 09:30 Eos # (Auto) 0.2 K/uL (0.0-0.7) 05/18/18 09:30 Baso # (Auto) 0.1 K/uL (0.0-0.2) 05/18/18 09:30 PT 11.5 SECONDS (9.7-12.2) 05/14/18 11:25 INR 1.1 05/14/18 11:25 APTT 36 SECONDS (21-34) H 05/14/18 11:25 pO2 28 mm/Hg (30-55) L 05/14/18 14:10 VBG pH 7.45 (7.32-7.43) H 05/14/18 14:10 VBG pCO2 46 mmHg (40-60) 05/14/18 14:10 VBG HCO3 29.2 mmol/L 05/14/18 14:10 VBG Total CO2 33.4 mmol/L (22-28) H 05/14/18 14:10 VBG O2 Sat (Calc) 54.5 % (40-65) 05/14/18 14:10 VBG Base Excess 6.9 mmol/L (0.0-2.0) H 05/14/18 14:10 VBG Potassium 4.3 mmol/L (3.6-5.2) 05/14/18 14:10 Sodium 138.0 mmol/l (132-148) 05/14/18 14:10 Chloride 102.0 mmol/L (98-107) 05/14/18 14:10 Glucose 84 mg/dl (65-105) 05/14/18 14:10 Lactate 1.5 mmol/L (0.7-2.1) 05/14/18 14:10 Sodium 134 mmol/L (132-148) 05/18/18 09:30 Potassium 3.8 mmol/L (3.6-5.2) 05/18/18 09:30 Chloride 95 mmol/L (98-107) L 05/18/18 09:30 Carbon Dioxide 26 mmol/L (22-30) 05/18/18 09:30 Anion Gap 17 (10-20) 05/18/18 09:30 BUN 30 mg/dL (7-17) H 05/18/18 09:30 Creatinine 8.7 mg/dL (0.7-1.2) H* D 05/18/18 09:30 Est GFR ( Amer) 5 05/18/18 09:30 Est GFR (Non-Af Amer) 5 05/18/18 09:30 POC Glucose (mg/dL) 140 mg/dL (65-110) H 05/18/18 11:07 Random Glucose 112 mg/dL (65-105) H D 05/18/18 09:30 Hemoglobin A1c 5.8 % (4.2-6.5) 05/15/18 11:25 Calcium 9.6 mg/dl (8.6-10.4) 05/18/18 09:30 Phosphorus 7.7 mg/dL (2.5-4.5) H 05/18/18 09:30 Magnesium 1.8 mg/dL (1.6-2.3) 05/18/18 09:30 % Saturation 25 (20-55) 05/18/18 09:30 Ferritin 1870.0 ng/mL 05/18/18 09:30 Total Bilirubin 0.5 mg/dL (0.2-1.3) 05/18/18 09:30 AST 38 U/L (14-36) H D 05/18/18 09:30 ALT 18 U/L (9-52) 05/18/18 09:30 Alkaline Phosphatase 107 U/L (38-126) 05/18/18 09:30 Total Protein 7.2 g/dL (6.3-8.3) 05/18/18 09:30 Albumin 3.7 g/dL (3.5-5.0) 05/18/18 09:30 Globulin 3.6 gm/dL (2.2-3.9) 05/18/18 09:30 Albumin/Globulin Ratio 1.0 (1.0-2.1) 05/18/18 09:30 Triglycerides 193 mg/dL (0-149) H 05/15/18 11:25 Cholesterol 140 mg/dL (0-199) 05/15/18 11:25 LDL Cholesterol Direct 79 mg/dL (0-129) 05/15/18 11:25 HDL Cholesterol 20 mg/dL (30-70) L 05/15/18 11:25 Venous Blood Potassium 4.3 mmol/L (3.6-5.2) 05/14/18 14:10 Urine Color Yellow (YELLOW) 05/15/18 06:21 Urine Clarity Hazy (Clear) 05/15/18 06:21 Urine pH 8.0 (5.0-8.0) 05/15/18 06:21 Ur Specific Mio 1.009 (1.003-1.030) 05/15/18 06:21 Urine Protein 1+ mg/dL (NEGATIVE) H 05/15/18 06:21 Urine Glucose (UA) Normal mg/dL (Normal) 05/15/18 06:21 Urine Ketones Negative mg/dL (NEGATIVE) 05/15/18 06:21 Urine Blood Negative (NEGATIVE) 05/15/18 06:21 Urine Nitrate Negative (NEGATIVE) 05/15/18 06:21 Urine Bilirubin Negative (NEGATIVE) 05/15/18 06:21 Urine Urobilinogen Normal mg/dL (0.2-1.0) 05/15/18 06:21 Ur Leukocyte Esterase Trace Natalia/uL (Negative) 05/15/18 06:21 Urine WBC (Auto) 6 /hpf (0-5) H 05/15/18 06:21 Urine RBC (Auto) 2 /hpf (0-3) 05/15/18 06:21 Ur Squamous Epith Cells 49 /hpf (0-5) H 05/15/18 06:21 Urine Bacteria Occ (<OCC) H 05/15/18 06:21 Hep Bs Antigen Negative (NEGATIVE) 05/16/18 11:24 Attending/Attestation - Attestation I have personally seen and examined this patient.: Yes I have fully participated in the care of the patient.: Yes I have reviewed all pertinent clinical information, including history, physical exam and plan: Yes Notes (Text): Medical attending: Patient was seen and examined by me. Agree with the above note by the resident The patient will be having HD via the permacath. I am told surgery is not planning on surgery for the AVF again so at some point she will have to follow up with surgery She will be sent with PO abx as well as have IV abx during her HD sessions. As mentioned previously she had + staph aureus infections from the wounds of the AVF thank you Ryan Verde
== END 2018-05-18 17:15 | disposition home or self-care (01) | DRG 264 ==
LOC: C.ER 09:49 → C.9E 12:41 → C.6T 14:16 → OBSVTOIN 05-16 11:52
PROVIDERS: ADMIT Hospitalist; ATTEND Hospitalist
PROC: 03PY0JZ Removal of Synthetic Substitute from Upper Artery, Open Approach (ICD-10-PCS; principal; 2018-05-16)
PROC: 0JH63XZ Insertion of Tunneled Vascular Access Device into Chest Subcutaneous Tissue and Fascia, Percutaneous Approach (ICD-10-PCS; 2018-05-16)
PROC: 02HV33Z Insertion of Infusion Device into Superior Vena Cava, Percutaneous Approach (ICD-10-PCS; 2018-05-16)
PROC: B518ZZA Fluoroscopy of Superior Vena Cava, Guidance (ICD-10-PCS; 2018-05-16)
PROC: B544ZZA Ultrasonography of Left Jugular Veins, Guidance (ICD-10-PCS; 2018-05-16)
PROC: 5A1D70Z Performance of Urinary Filtration, Intermittent, Less than 6 Hours Per Day (ICD-10-PCS; 2018-05-16)
PROC: 5A1D70Z Performance of Urinary Filtration, Intermittent, Less than 6 Hours Per Day (ICD-10-PCS; 2018-05-18)
DX: T82.7XXA Infection and inflammatory reaction due to other cardiac and vascular devices, implants and grafts, initial encounter (principal); N18.6 End stage renal disease; T82.590A Other mechanical complication of surgically created arteriovenous fistula, initial encounter; R78.81 Bacteremia; L03.113 Cellulitis of right upper limb; I12.0 Hypertensive chronic kidney disease with stage 5 chronic kidney disease or end stage renal disease; B95.2 Enterococcus as the cause of diseases classified elsewhere; B95.61 Methicillin susceptible Staphylococcus aureus infection as the cause of diseases classified elsewhere; E11.22 Type 2 diabetes mellitus with diabetic chronic kidney disease; D50.0 Iron deficiency anemia secondary to blood loss (chronic); J44.9 Chronic obstructive pulmonary disease, unspecified; E78.5 Hyperlipidemia, unspecified; E78.00 Pure hypercholesterolemia, unspecified; Y84.8 Other medical procedures as the cause of abnormal reaction of the patient, or of later complication, without mention of misadventure at the time of the procedure; Z99.2 Dependence on renal dialysis; Z83.3 Family history of diabetes mellitus; Z87.891 Personal history of nicotine dependence

== ENCOUNTER 2018-06-07 11:10 | Outpatient (CLI) | payer MEDICARE, MEDICAID | END 2018-06-07 11:11 | disposition home or self-care (01) | LOC: C.VASC 11:10 | DX: Z01.818 Encounter for other preprocedural examination (principal) ==

== ENCOUNTER 2018-06-14 11:43 | Outpatient (CLI) | payer MEDICARE, MEDICAID | END 2018-06-14 11:44 | disposition home or self-care (01) | LOC: C.PAT 11:43 | DX: N18.6 End stage renal disease (principal) ==

== ENCOUNTER 2018-06-19 09:14 | Day surgery (SDC) | payer MEDICARE, MEDICAID | END 2018-06-19 15:45 | disposition home or self-care (01) | LOC: C.SDS 09:14 | DX: N18.6 End stage renal disease (principal) ==